=== PATIENT | male | born 1945 | race African-American/Black ===

== ENCOUNTER → 2018-03-22 | Outpatient (CLI) | payer MEDICARE ==
--- NOTE | 2018-03-22 11:11 | US ---
EXAMINATION TYPE: US liver DATE OF EXAM: 03/22/2018 COMPARISON: NONE CLINICAL HISTORY: R94.5 Elevated liver enzymes. Elevated LFT's EXAM MEASUREMENTS: Liver Length: 12.0 cm Gallbladder Wall: 0.2 cm CBD: 0.3 cm Right Kidney: 10.5 x 6.1 x 5.6 cm Limited scan/ Pt very gassy, most images visualized intercostally Pancreas: Obscured by bowel gas Liver: Limited visualization, visualized portions appeared wnl Gallbladder: wnl Evidence for sonographic Martinez's sign: No CBD: wnl Right Kidney: wnl IMPRESSION: 1. Technically difficult exam with limited visualization of the liver, however the visualized portion s have a homogeneous and unremarkable echogenicity. No focal hepatic lesion is seen. No cholelithiasi s or hydronephrosis. 2. Obscuration of the pancreas.
== END ==
LOC: RADUSWWP 10:03
PROVIDERS: ATTEND Internal Medicine
DX: K86.89 Other specified diseases of pancreas (principal)
CPT/HCPCS: 76705

== ENCOUNTER 2018-03-28 09:13 | Day surgery (SDC) | payer MEDICARE ==
[2018-03-24 13:07] VITALS: BMI 30.2
[~2018-03-28 09:13] MED LIST: LACTATED RINGERS 1,000 ML IV SCH
[2018-03-28] MEDS ORDERED: LIDOCAINE 1% 20 ML VIAL (10MG/ML) FOR IV START INTRADERMA ONE (10:18)
[2018-03-28 10:24] VITALS: RESP 18; TEMP 97.5
[2018-03-28] MEDS ORDERED: LIDOCAINE 1% INJ 10MG/ML (20 ML MDV) ONE (11:29)
[2018-03-28] MEDS ORDERED: PROPOFOL 10 MG/ML 20 ML VIAL IV ONE (11:29)
--- NOTE | 2018-03-28 11:59 | P.PCN ---
Date of Procedure: 03/28/18 Procedure(s) Performed: Procedure: Colonoscopy and polypectomy. Preoperative diagnosis: Screening for neoplasia. Postoperative diagnosis: 2 right colon polyps snared but no large polyps or cancer. Preparation: HalfLytely prep. Sedation: Was provided by anesthesia. Brief clinical history: The patient is a 72-year-old male who is scheduled for this evaluation for screening for neoplasia age being his risk factor. There is no family history of colon cancer. The patient has no abdominal complaints, bleeding or anemia. This would be his first colonoscopy. Procedure: With the patient on his left lateral decubitus position and after informed consent and adequate sedation, the perianal area was inspected and it did not show any fissures or fistulas. There were no masses felt on digital rectal examination. The Olympus CFQ 160L video colonoscope was then inserted in the rectum in the usual fashion and advanced to the cecum. There was a pedunculated polyp in the proximal right colon measuring around 1-1.5 cm which was snared and retrieved by suctioning it to the tip of the endoscope and withdrawing the endoscope and restarting the exam. There was another proximal diminutive polyp which was snared and retrieved by suction, but there were no large polyps or cancer. I retroflexed the endoscope in the rectum before the endoscope was withdrawn. The patient tolerated the procedure well. Plan: The patient was reassured. He will follow-up with you as planned and I recommended repeat exam in 5 years depending on his overall health at that time.
[2018-03-28 12:29] VITALS: BP 173/92; PULSE 80
== END 2018-03-28 12:43 | disposition home or self-care (01) ==
LOC: ORWHC2ENDO 09:13
DX: Z12.11 Encounter for screening for malignant neoplasm of colon (principal); D12.2 Benign neoplasm of ascending colon; I10 Essential (primary) hypertension; Z79.899 Other long term (current) drug therapy
CPT/HCPCS: 88305; 45385; J2001; J2704

== ENCOUNTER 2021-11-29 12:34 | Observation (INO) | payer MEDICARE ==
[2021-11-29] MEDS ORDERED: SODIUM CHLORIDE 0.9% 1,000 ML IV STA (12:36)
--- NOTE | 2021-11-29 12:49 | ED ---
Syncope HPI - General Stated Complaint: Syncope Time Seen by Provider: 11/29/21 12:34 Source: patient, EMS, RN notes reviewed Mode of arrival: EMS - History of Present Illness Initial Comments: 75-year-old male with a history of elevated liver enzymes and has no history of heart or lung disease who is a Vtap a brunch this morning he felt sweaty his eyes rolled back he became pale and diaphoretic. He states he does not believe he really totally passed out he denied any palpitations or chest pain shortness of breath upon arrival medics stated he was awake and alert he was a CPM diaphoretic but his color has returned he still slightly diaphoretic per medics. His only other history that of hypertension. No new medications reported no recent illnesses MD Complaint: almost passed out - Related Data Home Medications Medication Instructions Recorded Confirmed Docusate Sodium [Dok] 100 mg PO BID 11/29/21 11/29/21 Ergocalciferol (Vitamin D2) 1,250 mcg PO WE 11/29/21 11/29/21 [Drisdol (50,000 Iu)] Naproxen [Naprosyn] 500 mg PO BID 11/29/21 11/29/21 Tamsulosin HCl [Flomax] 0.4 mg PO DAILY 11/29/21 11/29/21 carvediloL [Coreg] 3.125 mg PO BID 11/29/21 11/29/21 lisinopriL [Zestril] 20 mg PO DAILY 11/29/21 11/29/21 Allergies Allergy/AdvReac Type Severity Reaction Status Date / Time No Known Allergies Allergy Verified 11/29/21 15:38 Review of Systems ROS Statement: Those systems with pertinent positive or pertinent negative responses have been documented in the HPI. ROS Other: All systems not noted in ROS Statement are negative. General Exam - General Exam Comments Initial Comments: This is a well-developed well-nourished awake alert oriented 4 male General appearance: alert, in no apparent distress Head exam: Present: atraumatic, normocephalic, normal inspection Eye exam: Present: normal appearance, PERRL, EOMI. Absent: scleral icterus, conjunctival injection, periorbital swelling ENT exam: Present: mucous membranes dry Neck exam: Present: normal inspection. Absent: tenderness, meningismus, lymphadenopathy Respiratory exam: Present: normal lung sounds bilaterally. Absent: respiratory distress, wheezes, rales, rhonchi, stridor Cardiovascular Exam: Present: regular rate, normal rhythm, normal heart sounds. Absent: systolic murmur, diastolic murmur, rubs, gallop, clicks GI/Abdominal exam: Present: soft, normal bowel sounds. Absent: distended, tenderness, guarding, rebound, rigid Extremities exam: Present: normal inspection, full ROM, normal capillary refill. Absent: tenderness, pedal edema, joint swelling, calf tenderness Back exam: Present: normal inspection Neurological exam: Present: alert, oriented X3, CN II-XII intact Psychiatric exam: Present: normal affect, normal mood Skin exam: Present: warm, intact, normal color, diaphoretic. Absent: rash Course Vital Signs 11/29/21 12:46 Temperature 98.2 F Pulse Rate 60 Respiratory 18 Rate Blood Pressure 162/81 O2 Sat by Pulse 98 Oximetry - Reevaluation(s) Reevaluation #1: 11/29/21 16:20 Reevaluation patient finds he is asymptomatic this time family members or present. Discussed the events patient apparently started having diaphoresis his eyes rolled back and he started following toward the right but was caught by family members and did not actually injure himself. He was laid on the floor and then quickly woke up and symptoms resolved EKG Findings - EKG Results: EKG: interpreted by PASTOR, sinus rhythm (Sinus rhythm of 60 ME interval 188 QRS duration 80 QT since QTC 391/391 nonspecific T-wave configuration some artifact present) Medical Decision Making - Medical Decision Making Patient is awake alert with no symptoms at this time I did discuss the findings with the patient family and with Dr. Haque. Patient be admitted for inpatient evaluation and treatment and monitoring. - Lab Data Result diagrams: 11/29/21 13:15 11/29/21 15:30 Lab Results 11/29/21 11/29/21 11/29/21 Range/Units 13:15 13:15 13:15 WBC 6.7 (3.8-10.6) k/uL RBC 3.47 L (4.30-5.90) m/uL Hgb 11.9 L (13.0-17.5) gm/dL Hct 38.8 L (39.0-53.0) % MCV 111.9 H (80.0-100.0) fL MCH 34.4 (25.0-35.0) pg MCHC 30.8 L (31.0-37.0) g/dL RDW 14.0 (11.5-15.5) % Plt Count 169 (150-450) k/uL MPV 8.1 Neutrophils % 51 % Lymphocytes % 37 % Monocytes % 6 % Eosinophils % 4 % Basophils % 0 % Neutrophils # 3.4 (1.3-7.7) k/uL Lymphocytes # 2.5 (1.0-4.8) k/uL Monocytes # 0.4 (0-1.0) k/uL Eosinophils # 0.3 (0-0.7) k/uL Basophils # 0.0 (0-0.2) k/uL Manual Slide Review Performed Hypochromasia Marked Macrocytosis Marked A APTT 18.9 L (22.0-30.0) sec Sodium Cancelled Potassium Cancelled Chloride Cancelled Carbon Dioxide Cancelled Anion Gap Cancelled BUN Cancelled Creatinine Cancelled Est GFR (CKD-EPI)AfAm Cancelled Est GFR (CKD-EPI)NonAf Cancelled Glucose Cancelled Calcium Cancelled Magnesium 1.8 (1.6-2.3) mg/dL Total Bilirubin Cancelled AST Cancelled ALT Cancelled Alkaline Phosphatase Cancelled Troponin I (0.000-0.034) ng/mL Total Protein Cancelled Albumin Cancelled Urine Color Urine Appearance (Clear) Urine pH (5.0-8.0) Ur Specific [place] (1.001-1.035) Urine Protein (Negative) Urine Glucose (UA) (Negative) Urine Ketones (Negative) Urine Blood (Negative) Urine Nitrite (Negative) Urine Bilirubin (Negative) Urine Urobilinogen (<2.0) mg/dL Ur Leukocyte Esterase (Negative) Urine RBC (0-5) /hpf Urine WBC (0-5) /hpf Ur Squamous Epith Cells (0-4) /hpf Hyaline Casts (0-2) /lpf Urine Mucus (None) /hpf 11/29/21 11/29/21 11/29/21 Range/Units 13:15 15:30 15:33 WBC (3.8-10.6) k/uL RBC (4.30-5.90) m/uL Hgb (13.0-17.5) gm/dL Hct (39.0-53.0) % MCV (80.0-100.0) fL MCH (25.0-35.0) pg MCHC (31.0-37.0) g/dL RDW (11.5-15.5) % Plt Count (150-450) k/uL MPV Neutrophils % % Lymphocytes % % Monocytes % % Eosinophils % % Basophils % % Neutrophils # (1.3-7.7) k/uL Lymphocytes # (1.0-4.8) k/uL Monocytes # (0-1.0) k/uL Eosinophils # (0-0.7) k/uL Basophils # (0-0.2) k/uL Manual Slide Review Hypochromasia Macrocytosis APTT (22.0-30.0) sec Sodium 139 Potassium 4.7 Chloride 108 H Carbon Dioxide 27 Anion Gap 4 BUN 11 Creatinine 1.05 Est GFR (CKD-EPI)AfAm 81 Est GFR (CKD-EPI)NonAf 70 Glucose 111 H Calcium 9.0 Magnesium (1.6-2.3) mg/dL Total Bilirubin 0.7 AST 62 H ALT 45 Alkaline Phosphatase 108 Troponin I <0.012 (0.000-0.034) ng/mL Total Protein 6.7 Albumin 3.4 L Urine Color Yellow Urine Appearance Clear (Clear) Urine pH 6.5 (5.0-8.0) Ur Specific [place] 1.018 (1.001-1.035) Urine Protein Trace H (Negative) Urine Glucose (UA) Negative (Negative) Urine Ketones Negative (Negative) Urine Blood Negative (Negative) Urine Nitrite Negative (Negative) Urine Bilirubin Negative (Negative) Urine Urobilinogen 4.0 (<2.0) mg/dL Ur Leukocyte Esterase Moderate H (Negative) Urine RBC 5 (0-5) /hpf Urine WBC 21 H (0-5) /hpf Ur Squamous Epith Cells <1 (0-4) /hpf Hyaline Casts 15 H (0-2) /lpf Urine Mucus Occasional H (None) /hpf - Radiology Data Radiology results: report reviewed (Imaging reviewed and as well as report no acute findings), image reviewed Disposition Clinical Impression: Syncope Disposition: ADMITTED IP TO THIS [facility] Condition: Fair Referrals: Carmina Haque MD [Primary Care Provider] - 1-2 days Decision Date: 11/29/21 Decision Time: 16:00
[2021-11-29 13:45] LABS: Basophils % (A) 0 %; Eosinophils # (A) 0.3 k/uL (0-0.7); Eosinophils % (A) 4 %; HCT 38.8 % (39.0-53.0); HGB 11.9 gm/dL (13.0-17.5); Hypochromasia Marked; Lymphocytes # (A) 2.5 k/uL (1.0-4.8); Lymphocytes % (A) 37 %; MCH 34.4 pg (25.0-35.0); MCHC 30.8 g/dL (31.0-37.0); MCV 111.9 fL (80.0-100.0); Macrocytosis Marked; Mean Platelet Volume 8.1; Monocytes # (A) 0.4 k/uL (0-1.0); Monocytes % (A) 6 %; Neutrophils # (A) 3.4 k/uL (1.3-7.7); Neutrophils % (A) 51 %; Platelet Count 169 k/uL (150-450); RBC 3.47 m/uL (4.30-5.90); WBC 6.7 k/uL (3.8-10.6)
--- NOTE | 2021-11-29 14:50 | XR ---
EXAMINATION TYPE: XR chest 2V DATE OF EXAM: 11/29/2021 COMPARISON: NONE HISTORY: Syncope TECHNIQUE: 2 views FINDINGS: Heart is normal. Lungs are clear of infiltrate. No heart failure. There are no hilar masses . Bony thorax is intact. IMPRESSION: No active cardiopulmonary disease. Normal heart.
[2021-11-29 15:53] LABS: Albumin 3.4 g/dL (3.5-5.0); Potassium 4.7 mmol/L (3.5-5.1); Total Bilirubin 0.7 mg/dL (0.2-1.3); Total Protein 6.7 g/dL (6.3-8.2)
[2021-11-29 16:09] LABS: Appearance,Urine Clear (Clear); Bilirubin,Urine Negative (Negative); Blood,Urine Negative (Negative); Color,Urine Yellow; Glucose,Urine (UA) Negative (Negative); Hyaline Casts,Urine 15 /lpf (0-2); Ketones,Urine Negative (Negative); Leukocyte Esterase,Urine Moderate (Negative); Mucus,Urine Occasional /hpf; Nitrite,Urine Negative (Negative); PH, Urine 6.5 (5.0-8.0); Protein,Urine Trace (Negative); RBC,Urine 5 /hpf (0-5); Specific Gravity,Urine 1.018 (1.001-1.035); Squamous Epithelial Cell,Urine <1 /hpf (0-4); WBC,Urine 21 /hpf (0-5)
[2021-11-29] MEDS ORDERED: ACETAMINOPHEN TAB 325 MG TAB PO PRN (16:23)
[2021-11-29] MEDS ORDERED: NALOXONE 0.4 MG/ML 1 ML VIAL IV PRN (16:23)
[2021-11-29 16:24] LABS: Prothrombin Time 10.9 sec (9.0-12.0)
[2021-11-29] MEDS ORDERED: SODIUM CHLORIDE 0.9% 1,000 ML IV SCH (16:30)
[2021-11-29] MEDS ORDERED: FAMOTIDINE 20 MG/2 ML VIAL IV STA (16:40)
--- NOTE | 2021-11-29 17:05 | CT ---
EXAMINATION TYPE: CT angio chest DATE OF EXAM: 11/29/2021 COMPARISON: None HISTORY: Syncope. CT DLP: 315.6 mGycm Automated exposure control for dose reduction was used. CONTRAST: Performed with IV Contrast, patient injected with 75ml mL of Isovue 370. There are Three-D postprocessed images. Mediastinum is normal. No adenopathy. There are no hilar masses. Heart size is normal. No pericardial effusion. Thoracic aorta is intact. No aneurysm. The lungs are clear of infiltrate. There is normal contrast opacification of the pulmonary arteries. There are no filling defects. There is small hiatal hernia. The thoracic spine is intact. No compression fracture. Sternum is intact. IMPRESSION: No evidence of pulmonary embolism. No suspicious pulmonary mass.
[2021-11-29] MEDS ORDERED: hydrALAZINE HCL 20 MG/ML 1 ML VIAL IVP STA (17:50)
[2021-11-29] MEDS: carvediloL 3.125 MG TAB PO SCH (20:06)
[2021-11-29] MEDS: NAPROXEN 250 MG TAB PO SCH (20:06)
[2021-11-29] MEDS: DOCUSATE 100 MG CAP PO SCH (20:06)
[2021-11-29] MEDS: MELATONIN 5 MG TABLET PO SCH (23:58)
[2021-11-30] MEDS: NAPROXEN 250 MG TAB PO SCH ×2 (08:47→20:37)
[2021-11-30] MEDS: carvediloL 3.125 MG TAB PO SCH ×2 (08:47→20:38)
[2021-11-30] MEDS: DOCUSATE 100 MG CAP PO SCH ×2 (08:48→20:38)
[2021-11-30] MEDS: TAMSULOSIN 0.4 MG CAP.ER.24H PO SCH (08:48)
[2021-11-30] MEDS ORDERED: lisinopriL 20 MG TAB PO SCH (09:00)
[2021-11-30] MEDS: ENOXAPARIN 40 MG/0.4 ML SYRINGE SQ SCH (12:52)
--- NOTE | 2021-11-30 15:21 | US ---
EXAMINATION TYPE: US carotid duplex BILAT DATE OF EXAM: 11/30/2021 COMPARISON: NONE CLINICAL HISTORY: syncope. syncope. Hypertension, hyperlipidemia. EXAM MEASUREMENTS: RIGHT: Peak Systolic Velocity (PSV) cm/sec ----- Right CCA: 100 ----- Right ICA: 175 ----- Right ECA: 136 ICA/CCA ratio: 1.2 RIGHT: End Diastole cm/sec ----- Right CCA: 15.2 ----- Right ICA: 28.5 ----- Right ECA: 9.7 LEFT: Peak Systolic Velocity (PSV) cm/sec ----- Left CCA: 94.4 ----- Left ICA: 192 ----- Left ECA: 214 ICA/CCA ratio: 2.0 LEFT: End Diastole cm/sec ----- Left CCA: 19.7 ----- Left ICA: 24.0 ----- Left ECA: 16.6 VERTEBRALS (direction of flow): Right Vertebral: Antegrade Left Vertebral: Antegrade Rhythm: Normal Turbulent flow seen within both ICA's. IMPRESSION: 1. Elevated velocities within the internal carotid arteries bilaterally compatible with moderate sten osis between 50 and 69%. Criteria for Assigning % of Stenosis / Diameter reduction (Estimation based on the indirect measurements of the internal carotid artery velocities (ICA PSV). 1. Normal (no stenosis)=ICA PSV < 125 cm/s: ratio < 2.0: ICA EDV<40 cm/s. 2. Less than 50% stenosis=ICA PSV < 125 cm/s: ratio < 2.0: ICA EDV<40 cm/s. 3. 50 to 69% stenosis=ICA PSV of 125 to 230 cm/s: ration 2.0 ? 4.0: ICA EDV 40-100 cm/s. 4. Greater than 70% stenosis to near occlusion= ICA PSV > 230 cm/s: ratio > 4.0: ICA EDV > 100 cm/s. 5. Near occlusion= ICA PSV velocities may be low or undetectable: variable ratio and ICA EDV. 6. Total occlusion=unable to detect flow.
--- NOTE | 2021-11-30 17:32 | CA ---
Transthoracic Echo Report Name: Prince Kin Age: 75 Gender: M : 1945 Exam Date: 11/30/2021 14:06 Exam Location: [place] [facility] Ht (in): 73 Wt (lb): 150 Ordering Physician: Carmina Haque MD Attending/Referring Phys: Long Distance Billing Operator Sarah Bautista RDCS Procedure CPT: Indications: Syncope Cardiac Hx: Technical Quality: Technically difficult study Contrast 1: Total Dose (mL): Contrast 2: Total Dose (mL): MEASUREMENTS (Male / Female) Normal Values 2D ECHO LV Diastolic Diameter PLAX 4.4 cm 4.2 - 5.9 / 3.9 - 5.3 cm LV Systolic Diameter PLAX 3.2 cm IVS Diastolic Thickness 1.1 cm 0.6 - 1.0 / 0.6 - 0.9 cm LVPW Diastolic Thickness 1.0 cm 0.6 - 1.0 / 0.6 - 0.9 cm LV Relative Wall Thickness 0.5 RV Internal Dim ED PLAX 3.9 cm LA Volume 51.0 cm??? 18 - 58 / 22 - 52 cm??? M-MODE Aortic Root Diameter MM 3.4 cm LA Systolic Diameter MM 4.2 cm LA Ao Ratio MM 1.2 AV Cusp Separation MM 1.4 cm DOPPLER LVOT Peak Velocity 107.1 cm/s LVOT Peak Gradient 4.6 mmHg MV Area PHT 4.1 cm??? Mitral E Point Velocity 91.8 cm/s Mitral A Point Velocity 129.8 cm/s Mitral E to A Ratio 0.7 MV Deceleration Time 185.4 ms MV E' Velocity 9.0 cm/s Mitral E to MV E' Ratio 10.2 TR Peak Velocity 256.2 cm/s TR Peak Gradient 26.3 mmHg Right Ventricular Systolic Press 31.3 mmHg FINDINGS Left Ventricle Normal Left ventricular size, wall thickness, systolic function with no obvious regional wall motion abnormalities. Normal Left ventricular diastolic filling pattern. Left ventricular ejection fraction is estimated at 50-55 %. Right Ventricle Mild right ventricular dilatation. Right ventricular systolic pressure within normal limits. Right Atrium Normal right atrial size. Left Atrium Normal left atrial size. No spontaneous echo contrast seen in the left atrium. Mitral Valve Structurally normal mitral valve. Mitral annular calcification. Mild mitral regurgitation. Aortic Valve No aortic valve stenosis or regurgitation. Tricuspid Valve Structurally normal tricuspid valve. Mild tricuspid regurgitation. Pulmonic Valve Structurally normal pulmonic valve. Trace pulmonic regurgitation. Pericardium No pericardial effusion. Aorta Normal size aortic root and proximal ascending aorta. CONCLUSIONS Normal LV size and systolic function Mild mitral regurgitation Previewed by: Dr. Toery Argueta MD (Electronically Signed) Final Date: 30 November 2021 17:31
--- NOTE | 2021-11-30 17:47 | P.HPIM ---
History of Present Illness H&P Date: 11/30/21 Chief Complaint: Mary Sanderson, is a 75-year-old male who presented to [facility] with a chief complaint of syncope, patient stated that he became diaphoretic and pale and was told that he lost consciousness, EMS were called and patient was brought into emergency room. He was evaluated in the emergency room vital examination on presentation reveale d a temperature of 98.2 pulse 60 respiration 18 blood pressure 162/81 pulse ox 98% on room air Laboratory data revealed a white blood count of 6.7 hemoglobin 11.9 platelet count 169 d-dimer was elevated at 3.49 sodium 139 potassium 4.7 chloride 108 CO2 27 BUN 11 creatinine 1.05 AST 62 a LT 45 troponin level less than 0.012 Testing in the emergency room revealed EKG done in the emergency room revealed sinus rhythm with nonspecific T-wave abnormalities, chest x-ray done in the emergency room revealed no active cardiopulmonary disease normal heart, CT angiogram of the chest done in the emergency room revealed no evidence of pulmonary embolism. Patient was admitted to medical floor for further evaluation and treatment Past medical history is significant for history of hypertension, history of elevated liver enzymes, history of vitamin D deficiency, history of benign prostatic hypertrophy, and history of osteoarthritis. Past Medical History Past Medical History: Hypertension History of Any Multi-Drug Resistant Organisms: None Reported Past Surgical History: No Surgical Hx Reported Past Anesthesia/Blood Transfusion Reactions: No Reported Reaction Past Psychological History: No Psychological Hx Reported Smoking Status: Never smoker Past Alcohol Use History: None Reported Past Drug Use History: None Reported Medications and Allergies Home Medications Medication Instructions Recorded Confirmed Type Docusate Sodium [Dok] 100 mg PO BID 11/29/21 11/29/21 History Ergocalciferol (Vitamin D2) 1,250 mcg PO WE 11/29/21 11/29/21 History [Drisdol (50,000 Iu)] Naproxen [Naprosyn] 500 mg PO BID 11/29/21 11/29/21 History Tamsulosin HCl [Flomax] 0.4 mg PO DAILY 11/29/21 11/29/21 History carvediloL [Coreg] 3.125 mg PO BID 11/29/21 11/29/21 History lisinopriL [Zestril] 20 mg PO DAILY 11/29/21 11/29/21 History Allergies Allergy/AdvReac Type Severity Reaction Status Date / Time No Known Allergies Allergy Verified 11/29/21 15:38 Physical Exam Vitals: Vital Signs Temp Pulse Pulse Resp BP BP BP 11/30/21 08:00 69 16 11/30/21 07:00 98.7 F 69 16 120/74 11/30/21 02:13 98.3 F 82 17 164/75 11/30/21 01:12 88 18 11/29/21 20:10 98.2 F 88 18 173/84 11/29/21 20:06 88 18 11/29/21 18:07 73 18 152/81 11/29/21 12:46 98.2 F 60 18 162/81 Pulse Ox 11/30/21 08:00 11/30/21 07:00 98 11/30/21 02:13 99 11/30/21 01:12 11/29/21 20:10 100 11/29/21 20:06 11/29/21 18:07 98 11/29/21 12:46 98 Intake and Output 11/29/21 11/30/21 11/30/21 22:59 06:59 14:59 Intake Total 118 Output Total 100 150 220 Balance -100 -150 -102 Intake: Oral 118 Output: Urine 100 150 220 Other: Voiding Method Urinal Urinal Urinal # Voids 2 1 Weight 68.039 kg In general patient is alert and oriented x 3 in no distress HEENT head normocephalic and atraumatic Neck is supple no JVD no goiter no lymphadenopathy no carotid bruit Chest examination is clear to auscultation no crackles no wheezing Cardiac exam reveals regular heart sounds S1 and S2 no gallops no murmurs Abdomen is soft nontender no organomegaly with normal bowel sounds Extremity exam reveals no edema no cyanosis or clubbing Neurological examination reveals no gross focal deficits Results CBC & Chem 7: 11/29/21 13:15 11/29/21 15:30 Labs: Abnormal Lab Results - Last 24 Hours (Table) 11/29/21 11/29/21 11/29/21 Range/Units 13:15 13:15 15:30 RBC 3.47 L (4.30-5.90) m/uL Hgb 11.9 L (13.0-17.5) gm/dL Hct 38.8 L (39.0-53.0) % MCV 111.9 H (80.0-100.0) fL MCHC 30.8 L (31.0-37.0) g/dL Macrocytosis Marked A APTT 18.9 L (22.0-30.0) sec D-Dimer 3.49 H (<0.60) mg/L FEU Chloride (98-107) mmol/L Glucose (74-99) mg/dL AST (17-59) U/L Albumin (3.5-5.0) g/dL Urine Protein (Negative) Ur Leukocyte Esterase (Negative) Urine WBC (0-5) /hpf Hyaline Casts (0-2) /lpf Urine Mucus (None) /hpf 11/29/21 11/29/21 Range/Units 15:30 15:33 RBC (4.30-5.90) m/uL Hgb (13.0-17.5) gm/dL Hct (39.0-53.0) % MCV (80.0-100.0) fL MCHC (31.0-37.0) g/dL Macrocytosis APTT (22.0-30.0) sec D-Dimer (<0.60) mg/L FEU Chloride 108 H (98-107) mmol/L Glucose 111 H (74-99) mg/dL AST 62 H (17-59) U/L Albumin 3.4 L (3.5-5.0) g/dL Urine Protein Trace H (Negative) Ur Leukocyte Esterase Moderate H (Negative) Urine WBC 21 H (0-5) /hpf Hyaline Casts 15 H (0-2) /lpf Urine Mucus Occasional H (None) /hpf Microbiology - Last 24 Hours (Table) 11/29/21 15:33 Urine Culture - Preliminary Urine,Voided Thrombosis Risk Factor Assmnt - Choose All That Apply Each Factor Represents 1 point: Serious lung disease incl. pneumonia (< 1month) Each Risk Factor Represents 2 Points: Age 61-74 years Other congenital or acquired thrombophilia - If yes, enter type in comment: No Thrombosis Risk Factor Assessment Total Risk Factor Score: 3 Thrombosis Risk Factor Assessment Level: Moderate Risk Assessment and Plan Plan: Syncopal episode Elevated d-dimer, CT angiogram of the chest was negative for pulmonary embolism Underlying history of hypertension Underlying history of benign prostatic hypertrophy Underlying history of vitamin D deficiency Underlying history of osteoarthritis At this time patient is admitted to telemetry floor Echocardiogram and carotid Doppler were ordered Cardiology consultation requested Urine culture ordered He was started on IV Rocephin for urinary tract infection Home medications reviewed and reordered For DVT prophylaxis subcu Lovenox Will follow closely
[2021-11-30] MEDS: MELATONIN 5 MG TABLET PO SCH (20:37)
[2021-12-01 07:44] VITALS: RESP 14
[2021-12-01] MEDS ORDERED: lisinopriL 10 MG TAB PO SCH (09:00)
[2021-12-01] MEDS: DOCUSATE 100 MG CAP PO SCH (09:20)
[2021-12-01] MEDS: ENOXAPARIN 40 MG/0.4 ML SYRINGE SQ SCH (09:20)
[2021-12-01] MEDS: NAPROXEN 250 MG TAB PO SCH (09:20)
[2021-12-01] MEDS: TAMSULOSIN 0.4 MG CAP.ER.24H PO SCH (09:20)
[2021-12-01] MEDS ORDERED: SODIUM CHLORIDE 0.9% 1,000 ML IV SCH ×2 (09:30)
[2021-12-01 09:41] LABS: HCT 29.7 % (39.6-50.0); HGB 9.4 g/dL (13.0-17.0); MCH 33.3 pg (27.0-32.0); MCHC 31.6 g/dL (32.0-37.0); MCV 105.3 fL (80.0-97.0); NRBC Per 100 WBC 0 /100 WBCS (0.0-0.0); Platelet Count 148 X 10*3/uL (140-440); RBC 2.82 X 10*6/uL (4.40-5.60); RDW 14.9 % (11.5-14.5); WBC 6.58 X 10*3/uL (4.50-10.00)
[2021-12-01 09:54] LABS: ALT 34 U/L (10-49); AST 40 U/L (14-35); African American GFR (CKD) 105.4 (60.0-200.0); Albumin 2.9 g/dL (3.8-4.9); Albumin/Globulin Ratio 1.25 (1.60-3.17); Alkaline Phosphatase 66 U/L (41-126); BUN/Creat Ratio 17.48 Ratio (12.00-20.00); Blood Urea Nitrogen 12.9 mg/dL (9.0-27.0); Calcium 8.7 mg/dL (8.7-10.3); Carbon Dioxide 25.1 mmol/L (20.0-27.5); Chloride 109 mmol/L (96-109); Globulin 2.3 g/dL (1.6-3.3); Glucose 90 mg/dL (70-110); Potassium 3.9 mmol/L (3.5-5.5); Sodium 143 mmol/L (135-145); Total Protein 5.2 g/dL (6.2-8.2)
--- NOTE | 2021-12-01 10:08 | P.CRDCN ---
History of Present Illness History of present illness: HISTORY OF PRESENTING ILLNESS This is a pleasant 75-year-old male past medical history significant for hypertension. 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 We have been asked to see in consultation for syncope. Patient presents emergency department after a syncopal episode. Patient was having brunch at the [employer] with his family, patient states that he felt diaphoretic. Per EMS report, patient wasleaning, eyes rolling back of his head, and was assisted out of his chair to the floor and apparently experienced a syncopal episode. He was diaphoretic and cool. Per patient she does not remember actually passing out, he does remember being lowered to the floor. He denies any chest pain, shortness of breath, palpitations, lightheadedness or dizziness. He doesn't remember a warning sign prior to this happening. He states his first symptom was diaphoresis. When EMS arrived, his vital signs are stable, his EKG showed sinus rhythm, he was given IV fluids, neurological assessment was intact per EMS. Patient states that this has never happened before. He denies history of CAD, HI, Stroke, Diabetes, Arrhythmia or dyslipidemia. He denies tobacco use. DIAGNOSTICS EKG reveals sinus rhythm, heart rate 60, T wave inversion in lead III, nonspecific T-wave abnormalities. No acute ischemia noted.. Telemetry tracings indicate sinus rhythm with a rate in the 60s-70s, no ar rhythmia noted. Echocardiogram revealed an EF of 5055%, mild mitral regurgitation Chest CT revealed no pulmonary embolism Carotid ultrasound reveals moderate stenosis measuring 5069 percent and in ternal carotid arteries bilaterally Laboratory reviewed, troponin negative 3, WBC 6.5, hemoglobin 9.4, platelets 148, d-dimer 3.4, sodium 143, potassium 3.9, BUN 12, serum creatinine 0.7, albumin 2.9 Current home cardiac medications include lisinopril 20 mg daily, carvedilol 3.125 mg twice a day REVIEW OF SYSTEMS At the time of my exam: CONSTITUTIONAL: Denies fever or chills. CARDIOVASCULAR: Denies chest pain, shortness of breath, orthopnea, PND or palpitations. RESPIRATORY: Denies cough. GASTROINTESTINAL: Denies abdominal pain, diarrhea, constipation, nausea or vomiting. MUSCULOSKELETAL: Denies myalgias. NEUROLOGIC: Denies numbness, tingling, headacbe or weakness. ENDOCRINE: Denies fatigue, weight change, polydipsia or polyurina. GENITOURINARY: Denies burning, hematuria or urgency with micturation. HEMATOLOGIC: Denies history of anemia or bleeding. PHYSICAL EXAMINATION Blood pressure 132/66, heart rate 58, afebrile, saturations 99% on room air CONSTITUTIONAL: No apparent distress. HEENT: Head is normocephalic. Pupils are equal, round. Sclerae anicteric. Mucous membranes of the mouth are moist. No JVD. No carotid bruit. CHEST EXAMINATION: Lungs are clear to auscultation. No chest wall tenderness is noted on palpation or with deep breathing. HEART EXAMINATION: Regular rate and rhythm. S1, S2 heard. No murmurs, gallops or rub. ABDOMEN: Soft, nontender. Positive bowel sounds. EXTREMITIES: 2+ peripheral pulses, no lower extremity edema and no calf tenderness. NEUROLOGIC EXAMINATION: Patient is awake, alert and oriented x3. ASSESSMENT Syncopal episode History of hypertension Anemia PLAN Recommend stopping Coreg Increase Lisinopril 30mg daily Secondary to high suspicion for possible cardiac etiology, recommend Loop recorder placement I have discussed the risks, benefits and alternative therapies for the above- mentioned procedure and for both sedation/analgesia as well as necessary blood product administration, if indicated, as they pertain to this patient. The patient has indicated understanding and acceptance of the risks and procedures discussed. Questions have been answered appropriately and he is agreeable to move forward with the above-stated procedure. Plan for Loop recorder today with Dr. Argueta Follow up outpatient with Dr. Argueta Nurse practitioner note has been reviewed by physician. Signing provider agrees with the documented findings, assessment, and plan of care. Past Medical History Past Medical History: Hypertension History of Any Multi-Drug Resistant Organisms: None Reported Past Surgical History: No Surgical Hx Reported Past Anesthesia/Blood Transfusion Reactions: No Reported Reaction Past Psychological History: No Psychological Hx Reported Smoking Status: Never smoker Past Alcohol Use History: None Reported Past Drug Use History: None Reported Medications and Allergies Home Medications Medication Instructions Recorded Confirmed Type Docusate Sodium [Dok] 100 mg PO BID 11/29/21 11/29/21 History Ergocalciferol (Vitamin D2) 1,250 mcg PO WE 11/29/21 11/29/21 History [Drisdol (50,000 Iu)] Naproxen [Naprosyn] 500 mg PO BID 11/29/21 11/29/21 History Tamsulosin HCl [Flomax] 0.4 mg PO DAILY 11/29/21 11/29/21 History lisinopriL [Zestril] 20 mg PO DAILY 11/29/21 11/29/21 History Rosuvastatin [Crestor] 20 mg PO DAILY 90 Days #90 tablet 12/01/21 Rx Allergies Allergy/AdvReac Type Severity Reaction Status Date / Time No Known Allergies Allergy Verified 11/29/21 15:38 Physical Exam Vitals: Vital Signs Temp Pulse Resp BP BP Pulse Ox 12/01/21 07:00 98.1 F 58 L 14 132/66 99 12/01/21 01:16 97.8 F 67 17 114/61 99 11/30/21 19:01 97.7 F 63 16 129/69 100 11/30/21 15:00 98.2 F 68 16 144/80 98 11/30/21 14:00 68 16 Intake and Output 11/30/21 12/01/21 12/01/21 22:59 06:59 14:59 Intake Total 240 Output Total 120 Balance 120 Intake: Oral 240 Output: Urine 120 Other: # Voids 1 1 Results 12/01/21 06:13 11/29/21 15:30 Current Medications Generic Name Dose Route Start Last Admin Trade Name Freq PRN Reason Stop Dose Admin Acetaminophen 650 mg 11/29/21 16:23 Acetaminophen Tab 325 Mg Tab PO Q6HR PRN Mild Pain or Fever > 100.5 Carvedilol 3.125 mg 11/29/21 21:00 11/30/21 20:38 Carvedilol 3.125 Mg Tab PO 3.125 mg BID HUBERT Administration Docusate Sodium 100 mg 11/29/21 21:00 11/30/21 20:38 Docusate 100 Mg Cap PO 100 mg BID HUBERT Administration Enoxaparin Sodium 40 mg 11/30/21 11:45 11/30/21 12:52 Enoxaparin 40 Mg/0.4 Ml Syringe SQ 40 mg DAILY HUBERT Administration Ergocalciferol 1,250 mcg 12/02/21 16:26 Ergocalciferol 1,250 Mcg (50,000 Iu) Capsule PO WE HUBERT Ceftriaxone Sodium 1 gm/ 50 mls @ 100 mls/hr 11/30/21 12:00 11/30/21 12:52 Sodium Chloride IVPB 100 mls/hr Q24HR HUBERT Administration Protocol Lisinopril 20 mg 11/30/21 09:00 11/30/21 08:47 Lisinopril 20 Mg Tab PO 20 mg DAILY HUBERT Administration Melatonin 10 mg 11/29/21 23:45 11/30/21 20:37 Melatonin 5 Mg Tablet PO 10 mg HS HUBERT Administration Naloxone HCl 0.2 mg 11/29/21 16:23 Naloxone 0.4 Mg/Ml 1 Ml Vial IV Q2M PRN Opioid Reversal Naproxen 500 mg 11/29/21 21:00 11/30/21 20:37 Naproxen 250 Mg Tab PO 500 mg BID HUBERT Administration Tamsulosin HCl 0.4 mg 11/30/21 09:00 11/30/21 08:48 Tamsulosin 0.4 Mg Cap.Er.24h PO 0.4 mg DAILY HUBERT Administration Intake and Output 11/30/21 12/01/21 12/01/21 22:59 06:59 14:59 Intake Total 240 Output Total 120 Balance 120 Intake: Oral 240 Output: Urine 120 Other: # Voids 1 1 11/29/21 13:15 11/29/21 15:30
[2021-12-01] MEDS ORDERED: MIDAZOLAM 2 MG/2 ML VIAL IV ONE (10:41)
[2021-12-01] MEDS ORDERED: LIDOCAINE 1% PF 10 MG/ML (5 ML AMP) SQ ONE (10:42)
[2021-12-01] MEDS ORDERED: IV FLUID CONTINUATION 500 ML IV ONE (10:43)
--- NOTE | 2021-12-01 10:55 | P.EPPROC ---
- EP Procedure Note Electrophysiology Procedure Note: Loop monitor implant Primary physicians: Dr Haque Coding Validator: Dr. Argueta Indication: Syncope while sitting, preceded by sweating Patient was brought to the EP lab in a fasting state. Written informed consent was obtained prior to the procedure. The left pectoral area was prepped and dr gipsoned per protocol. Intravenous antibiotic was administered preoperatively. A subcutaneous Loop monitor was implanted successfully and the wound was closed per protocol. The device was programmed to detect significant sarina- arrhythmic and tachy-arrhythmic events, per protocol. Device and programming details: Patient underwent EP procedure under conscious sedation/moderate sedation, monitoring of the level of consciousness and physiologic parameters including but not limited to vital signs and oxygenation. Patient tolerated the procedure well without any acute complications. Start time: 1042 Stop time: 1052
--- NOTE | 2021-12-01 11:02 | P.PN ---
Progress Note - Text 75-year-old male patient with a history of hypertension He is sitting at the lunch table when he felt sweaty and then proceeded to almost pass out He is never experienced such an event When EMS arrived his blood pressure was high Twelve-lead EKG shows sinus mechanism 60 beats a minute 2-D echo is normal The plan is to implant a loop monitor to look for any sudden bradycardia episodes Stop carvedilol Increase lisinopril and maximize for antihypertensive management Rosuvastatin 20 mg by mouth daily after lipid panel Follow Dr. Argueta/Katarina Rae
[2021-12-01 11:20] VITALS: TEMP 98.4
[2021-12-01 11:23] LABS: Basophils # (A) 0.01 X 10*3/uL (0.00-0.10); Basophils % (A) 0.2 %; Eosinophils # (A) 0.27 X 10*3/uL (0.04-0.35); Eosinophils % (A) 4.1 %; Immature Grans, Automated 0.2 %; Lymphocytes # (A) 3.18 X 10*3/uL (0.90-5.00); Lymphocytes % (A) 48.3 %; Macrocytosis (M) 2+; Monocytes # (A) 0.71 X 10*3/uL (0.20-1.00); Monocytes % (A) 10.8 %; Neutrophils % (A) 36.4 %
[2021-12-01 15:15] VITALS: BP 150/80; PULSE 62
[2021-12-01 17:35] LABS: Chol/HDL Ratio 2.78 Ratio; LDL Cholesterol,Calculated 68.2 mg/dL (0.0-131.0); VLDL Calculation 12.48 mg/dL (5.00-40.00)
[2021-12-02] MEDS ORDERED: ERGOCALCIFEROL 1,250 MCG (50,000 IU) CAPSULE PO SCH (16:26)
== END 2021-12-01 15:56 | disposition home or self-care (01) ==
LOC: EC 12:34 → 6NMEDSUR 16:30
PROVIDERS: ADMIT Internal Medicine; ATTEND Internal Medicine
DX: R55 Syncope and collapse (principal); R79.89 Other specified abnormal findings of blood chemistry; R61 Generalized hyperhidrosis; N39.0 Urinary tract infection, site not specified; I65.23 Occlusion and stenosis of bilateral carotid arteries; I10 Essential (primary) hypertension; E55.9 Vitamin D deficiency, unspecified; I34.0 Nonrheumatic mitral (valve) insufficiency; M19.90 Unspecified osteoarthritis, unspecified site; E78.5 Hyperlipidemia, unspecified; N40.0 Benign prostatic hyperplasia without lower urinary tract symptoms; R74.8 Abnormal levels of other serum enzymes; D64.9 Anemia, unspecified; Z79.1 Long term (current) use of non-steroidal anti-inflammatories (NSAID); Z79.899 Other long term (current) drug therapy
CPT/HCPCS: 96365; 96372 ×2; 96361; 96375; 99285; 36415; 93005; 93306; 97162; 97166; 33285; 85379; 80061; 80053 ×2; 83735; 84484; 85025 ×2; 85610; 85730; 81001; 87086; 71046; 93880; 71275; G0378 ×3; C1764; J2250; J0360; J0690; J2001; J1650 ×2; J0696 ×2; Q9967

== ENCOUNTER 2022-03-23 13:39 | Observation (INO) | payer MEDICARE ==
[2022-03-23] MEDS ORDERED: SODIUM CHLORIDE 0.9% 1,000 ML IV STA (14:02)
--- NOTE | 2022-03-23 14:25 | ED ---
General Adult HPI - General Chief complaint: Syncope Stated complaint: syncopal episode Time Seen by Provider: 03/23/22 13:45 Source: patient, EMS, RN notes reviewed, old records reviewed Mode of arrival: EMS Limitations: no limitations - History of Present Illness Initial comments: This is a 76-year-old male who presents emergency Department stating he was just sitting and had no symptoms in the next thing he knows he woke up on the ground. He states his niece was at her and she states she just went unconscious and they lowered him to the floor and he was out for a few seconds and then he woke up and he continues to be asymptomatic. Patient denies any headache patient denies numbness weakness. Patient denies chest pain palpitations difficulty breathing shortness of breath per patient denies any recent fever chills or cough. Patient denies any diarrhea or vomiting. Patient states this happened once to him before back on Father's Day and they were unable to find anything wrong. - Related Data Home Medications Medication Instructions Recorded Confirmed Docusate Sodium [Dok] 100 mg PO BID 11/29/21 03/23/22 Ergocalciferol (Vitamin D2) 1,250 mcg PO WE 11/29/21 03/23/22 [Drisdol (50,000 Iu)] Tamsulosin HCl [Flomax] 0.4 mg PO DAILY 11/29/21 03/23/22 Levothyroxine Sodium [Synthroid] 25 mcg PO DAILY 03/23/22 03/23/22 Naproxen [Naprosyn] 500 mg PO BID 03/23/22 03/23/22 carvediloL [Coreg] 3.125 mg PO BID 03/23/22 03/23/22 lisinopriL 30 mg PO DAILY 03/23/22 03/23/22 Previous Rx's Medication Instructions Recorded Acetaminophen Tab [Tylenol] 650 mg PO Q6HR PRN tab 12/01/21 Rosuvastatin [Crestor] 20 mg PO DAILY 90 Days #90 tablet 12/01/21 Allergies Allergy/AdvReac Type Severity Reaction Status Date / Time No Known Allergies Allergy Verified 03/23/22 15:09 Review of Systems ROS Statement: Those systems with pertinent positive or pertinent negative responses have been documented in the HPI. ROS Other: All systems not noted in ROS Statement are negative. Past Medical History Past Medical History: Hypertension History of Any Multi-Drug Resistant Organisms: None Reported Past Surgical History: No Surgical Hx Reported Past Anesthesia/Blood Transfusion Reactions: No Reported Reaction Past Psychological History: No Psychological Hx Reported Smoking Status: Never smoker Past Alcohol Use History: None Reported Past Drug Use History: None Reported General Exam - General Exam Comments Initial Comments: GENERAL: Patient is well-developed and well-nourished. Patient is nontoxic and well- hydrated and is in no acute distress. ENT: Neck is soft and supple. No significant lymphadenopathy is noted. Oropharynx is clear. Moist mucous membranes. Neck has full range of motion without eliciting any pain. EYES: The sclera were anicteric and conjunctiva were pink and moist. Extraocular movements were intact and pupils were equal round and reactive to light. Eyelids were unremarkable. PULMONARY: Unlabored respirations. Good breath sounds bilaterally. No audible rales rhonchi or wheezing was noted. CARDIOVASCULAR: There is a regular rate and rhythm without any murmurs gallops or rubs. ABDOMEN: Soft and nontender with normal bowel sounds. SKIN: Skin is clear with no lesions or rashes and otherwise unremarkable. NEUROLOGIC: Patient is alert and oriented x3. Cranial nerves II through XII are grossly intact. Motor and sensory are also intact. Normal speech, volume and content. Symmetrical smile. MUSCULOSKELETAL: Normal extremities with adequate strength and full range of motion. No lower extremity swelling or edema. No calf tenderness. LYMPHATICS: No significant lymphadenopathy is noted PSYCHIATRIC: Normal psychiatric evaluation. Limitations: no limitations Course Vital Signs 03/23/22 03/23/22 03/23/22 13:44 15:11 15:12 Temperature 97.2 F L Pulse Rate 55 L 71 Respiratory 18 18 18 Rate Blood Pressure 104/92 Blood Pressure 138/90 [Right Arm Sitting] Blood Pressure 125/80 [Right Arm Standing] Blood Pressure 151/77 [Right Arm Supine] O2 Sat by Pulse 99 98 Oximetry 03/23/22 16:50 Temperature Pulse Rate 78 Respiratory 16 Rate Blood Pressure 138/75 Blood Pressure [Right Arm Sitting] Blood Pressure [Right Arm Standing] Blood Pressure [Right Arm Supine] O2 Sat by Pulse 99 Oximetry Medical Decision Making - Medical Decision Making EKG shows sinus bradycardia 50 bpm NC interval is 206 QRS is 90 QT interval 426 QTC is 41 per patient's EKG shows no ST segment elevation or T-wave inversions in leads 3 and aVF. Chest x-ray showed no acute abnormality. I went back into the room to reevaluate the patient and he remained asymptomatic. I spoke with Dr. Haque he wanted the patient admitted I admitted the patient I consult cardiology - Lab Data Result diagrams: 03/23/22 14:08 03/23/22 15:58 Lab Results 03/23/22 03/23/22 03/23/22 Range/Units 14:08 15:58 15:58 WBC 5.6 (3.8-10.6) k/uL RBC 3.89 L (4.30-5.90) m/uL Hgb 12.6 L (13.0-17.5) gm/dL Hct 40.8 (39.0-53.0) % MCV 105.0 H (80.0-100.0) fL MCH 32.4 (25.0-35.0) pg MCHC 30.9 L (31.0-37.0) g/dL RDW 13.4 (11.5-15.5) % Plt Count 164 (150-450) k/uL MPV 9.2 Neutrophils % 42 % Lymphocytes % 44 % Monocytes % 6 % Eosinophils % 4 % Basophils % 0 % Neutrophils # 2.3 (1.3-7.7) k/uL Lymphocytes # 2.5 (1.0-4.8) k/uL Monocytes # 0.4 (0-1.0) k/uL Eosinophils # 0.2 (0-0.7) k/uL Basophils # 0.0 (0-0.2) k/uL Hypochromasia Slight Macrocytosis Slight PT (9.0-12.0) sec INR (<1.2) APTT (22.0-30.0) sec Sodium 144 (137-145) mmol/L Potassium 4.1 (3.5-5.1) mmol/L Chloride 110 H (98-107) mmol/L Carbon Dioxide 24 (22-30) mmol/L Anion Gap 10 mmol/L BUN 16 (9-20) mg/dL Creatinine 0.95 (0.66-1.25) mg/dL Est GFR (CKD-EPI)AfAm >90 (>60 ml/min/1.73 sqM) Est GFR (CKD-EPI)NonAf 78 (>60 ml/min/1.73 sqM) Glucose 89 (74-99) mg/dL Calcium 9.0 (8.4-10.2) mg/dL Magnesium 1.9 (1.6-2.3) mg/dL Total Bilirubin 1.1 (0.2-1.3) mg/dL AST 57 (17-59) U/L ALT 45 (4-49) U/L Alkaline Phosphatase 84 (38-126) U/L Troponin I <0.012 (0.000-0.034) ng/mL Total Protein 6.6 (6.3-8.2) g/dL Albumin 3.4 L (3.5-5.0) g/dL 03/23/22 Range/Units 15:58 WBC (3.8-10.6) k/uL RBC (4.30-5.90) m/uL Hgb (13.0-17.5) gm/dL Hct (39.0-53.0) % MCV (80.0-100.0) fL MCH (25.0-35.0) pg MCHC (31.0-37.0) g/dL RDW (11.5-15.5) % Plt Count (150-450) k/uL MPV Neutrophils % % Lymphocytes % % Monocytes % % Eosinophils % % Basophils % % Neutrophils # (1.3-7.7) k/uL Lymphocytes # (1.0-4.8) k/uL Monocytes # (0-1.0) k/uL Eosinophils # (0-0.7) k/uL Basophils # (0-0.2) k/uL Hypochromasia Macrocytosis PT 10.5 (9.0-12.0) sec INR 1.0 (<1.2) APTT 22.6 (22.0-30.0) sec Sodium (137-145) mmol/L Potassium (3.5-5.1) mmol/L Chloride (98-107) mmol/L Carbon Dioxide (22-30) mmol/L Anion Gap mmol/L BUN (9-20) mg/dL Creatinine (0.66-1.25) mg/dL Est GFR (CKD-EPI)AfAm (>60 ml/min/1.73 sqM) Est GFR (CKD-EPI)NonAf (>60 ml/min/1.73 sqM) Glucose (74-99) mg/dL Calcium (8.4-10.2) mg/dL Magnesium (1.6-2.3) mg/dL Total Bilirubin (0.2-1.3) mg/dL AST (17-59) U/L ALT (4-49) U/L Alkaline Phosphatase (38-126) U/L Troponin I (0.000-0.034) ng/mL Total Protein (6.3-8.2) g/dL Albumin (3.5-5.0) g/dL Disposition Clinical Impression: Syncope Disposition: ADMITTED IP TO THIS HOSP Referrals: Carmina Haque MD [Primary Care Provider] - 1-2 days Time of Disposition: 17:25
[2022-03-23 14:43] LABS: Basophils % (A) 0 %; Eosinophils # (A) 0.2 k/uL (0-0.7); Eosinophils % (A) 4 %; HCT 40.8 % (39.0-53.0); HGB 12.6 gm/dL (13.0-17.5); Hypochromasia Slight; Lymphocytes # (A) 2.5 k/uL (1.0-4.8); Lymphocytes % (A) 44 %; MCH 32.4 pg (25.0-35.0); MCHC 30.9 g/dL (31.0-37.0); Macrocytosis Slight; Mean Platelet Volume 9.2; Monocytes # (A) 0.4 k/uL (0-1.0); Monocytes % (A) 6 %; Neutrophils # (A) 2.3 k/uL (1.3-7.7); Neutrophils % (A) 42 %; Platelet Count 164 k/uL (150-450); RBC 3.89 m/uL (4.30-5.90); RDW 13.4 % (11.5-15.5); WBC 5.6 k/uL (3.8-10.6)
--- NOTE | 2022-03-23 15:26 | XR ---
EXAMINATION TYPE: XR chest 2V DATE OF EXAM: 03/23/2022 COMPARISON: 11/29/2021 HISTORY: 76-year-old male with chest pain and syncope today TECHNIQUE: AP and lateral views FINDINGS: Heart upper limits of normal in size. Loop recorder device projects over the left side of the heart. Aorta and pulmonary vasculature within normal limits. No consolidation or pleural effusion. IMPRESSION: No acute cardiopulmonary process.
[2022-03-23 16:10] LABS: ALT 45 U/L (4-49); AST 57 U/L (17-59); African American GFR (CKD) >90 (>60 ml/min/1.73 sqM); Albumin 3.4 g/dL (3.5-5.0); Alkaline Phosphatase 84 U/L (38-126); Anion Gap 10 mmol/L; Blood Urea Nitrogen 16 mg/dL (9-20); Carbon Dioxide 24 mmol/L (22-30); Chloride 110 mmol/L (98-107); Glucose 89 mg/dL (74-99); Magnesium 1.9 mg/dL (1.6-2.3); Non-African American GFR(CKD) 78 (>60 ml/min/1.73 sqM); Potassium 4.1 mmol/L (3.5-5.1); Sodium 144 mmol/L (137-145); Total Bilirubin 1.1 mg/dL (0.2-1.3); Total Protein 6.6 g/dL (6.3-8.2)
[2022-03-23 16:12] LABS: Partial Thromboplastin Time 22.6 sec (22.0-30.0); Prothrombin Time 10.5 sec (9.0-12.0)
[2022-03-23] MEDS ORDERED: NITROGLYCERIN SL TABS 0.4 MG TAB SUBLINGUAL PRN (17:25)
--- NOTE | 2022-03-24 07:03 | P.CRDCN ---
History of Present Illness History of present illness: HISTORY OF PRESENTING ILLNESS Patient is pleasant 76 -year-old male with history of hypertension, syncope status post loop recorder implant who presents secondary syncope. He did have similar episode in November where he had sudden onset of diaphoresis and then a syncopal episode. Given symptoms a loop recorder was placed. He has done well since and has had no other episodes however yesterday was sitting in a chair and suddenly started feeling ready and then fell backwards however family member was there to catch him. Shortly after he returned to normal. Today he feels normal. Blood pressure mildly low at 109/90 when he presented to the hospital. Previous echo November 2021 showed EF 50-55% with mild mitral regurgitation. EKG shows sinus bradycardia with T-wave inversions in lead 3 and aVF which is worsened from EKG in November. He denies any chest pain or pressure. He has not be lieve he has had a stress test in the office. Troponins noted to be normal 3. REVIEW OF SYSTEMS At the time of my exam: CONSTITUTIONAL: Denies fever or chills. CARDIOVASCULAR: Denies chest pain, shortness of breath, orthopnea, PND or palpitations. RESPIRATORY: Denies cough. GASTROINTESTINAL: Denies abdominal pain, diarrhea, constipation, nausea or vomiting. MUSCULOSKELETAL: Denies myalgias. NEUROLOGIC: Denies numbness, tingling or weakness. ENDOCRINE: Denies fatigue, weight change, polydipsia or polyurina. GENITOURINARY: Denies burning, hematuria or urgency with micturation. HEMATOLOGIC: Denies history of anemia or bleeding. PHYSICAL EXAMINATION Vital signs reviewed. CONSTITUTIONAL: No apparent distress. HEENT: Head is normocephalic. Pupils are equal, round. Sclerae anicteric. Mucous membranes of the mouth are moist. No JVD. No carotid bruit. CHEST EXAMINATION: Lungs are clear to auscultation. No chest wall tenderness is noted on palpation or with deep breathing. HEART EXAMINATION: Regular rate and rhythm. S1, S2 heard. No murmurs, gallops or rub. ABDOMEN: Soft, nontender. Positive bowel sounds. EXTREMITIES: 2+ peripheral pulses, no lower extremity edema and no calf tende rness. NEUROLOGIC EXAMINATION: Patient is awake, alert and oriented x3. ASSESSMENT 1. Syncope 2 with proceeding diaphoresis 2. Abnormal EKG T-wave inversions, rule out ischemia 3. Hypertension, borderline low when presented to emergency department 109 over 90s 4. Sinus bradycardia in the 50s 5. Status post loop recorder implant PLAN Patient with second episode of syncope with prior episode in November. He has done well since that time. Syncope preceded by diaphoresis. Check loop recorder to rule out any tachycardia or bradycardia. Additionally no T-wave inversions on EKG and not have any significant angina however rule out obstructive CAD and we will check a Cardiolite stress test. If unrevealing patient may be discharged home however would decrease lisinopril from 30-10 mg given borderline hypotension on presentation. Past Medical History Past Medical History: Hypertension, Syncope History of Any Multi-Drug Resistant Organisms: None Reported Past Surgical History: No Surgical Hx Reported Past Anesthesia/Blood Transfusion Reactions: No Reported Reaction Past Psychological History: No Psychological Hx Reported Smoking Status: Never smoker Past Alcohol Use History: None Reported Past Drug Use History: None Reported - Past Family History Father Family Medical History: No Reported History Additional Family Medical History / Comment(s): at age 46 Mother Additional Family Medical History / Comment(s): breast cancer. age 95 Medications and Allergies Home Medications Medication Instructions Recorded Confirmed Type Docusate Sodium [Dok] 100 mg PO BID 11/29/21 03/23/22 History Ergocalciferol (Vitamin D2) 1,250 mcg PO WE 11/29/21 03/23/22 History [Drisdol (50,000 Iu)] Tamsulosin HCl [Flomax] 0.4 mg PO DAILY 11/29/21 03/23/22 History Acetaminophen Tab [Tylenol] 650 mg PO Q6HR PRN tab 12/01/21 03/23/22 Rx Rosuvastatin [Crestor] 20 mg PO DAILY 90 Days #90 tablet 12/01/21 03/23/22 Rx Levothyroxine Sodium [Synthroid] 25 mcg PO DAILY 03/23/22 03/23/22 History Naproxen [Naprosyn] 500 mg PO BID 03/23/22 03/23/22 History carvediloL [Coreg] 3.125 mg PO BID 03/23/22 03/23/22 History lisinopriL 30 mg PO DAILY 03/23/22 03/23/22 History Allergies Allergy/AdvReac Type Severity Reaction Status Date / Time No Known Allergies Allergy Verified 03/23/22 15:09 Physical Exam Vitals: Vital Signs Temp Pulse Pulse Resp BP BP BP 03/24/22 02:00 98.0 F 84 16 03/23/22 22:45 97.5 F L 70 18 03/23/22 21:24 98.1 F 73 18 158/83 03/23/22 16:50 78 16 138/75 03/23/22 15:12 18 138/90 125/80 03/23/22 15:11 71 18 03/23/22 13:44 97.2 F L 55 L 18 104/92 BP Pulse Ox 03/24/22 02:00 150/71 98 03/23/22 22:45 174/90 98 03/23/22 21:24 98 03/23/22 16:50 99 03/23/22 15:12 151/77 03/23/22 15:11 98 03/23/22 13:44 99 Intake and Output 03/23/22 03/24/22 03/24/22 22:59 06:59 14:59 Other: # Voids 2 Weight 83.461 kg Results 03/23/22 14:08 03/23/22 15:58 Cardiac Enzymes 03/23/22 03/23/22 03/23/22 Range/Units 15:58 15:58 18:59 AST 57 (17-59) U/L Troponin I <0.012 <0.012 (0.000-0.034) ng/mL 03/23/22 Range/Units 21:27 AST (17-59) U/L Troponin I <0.012 (0.000-0.034) ng/mL Coagulation 03/23/22 Range/Units 15:58 PT 10.5 (9.0-12.0) sec APTT 22.6 (22.0-30.0) sec CBC 03/23/22 Range/Units 14:08 WBC 5.6 (3.8-10.6) k/uL RBC 3.89 L (4.30-5.90) m/uL Hgb 12.6 L (13.0-17.5) gm/dL Hct 40.8 (39.0-53.0) % Plt Count 164 (150-450) k/uL Comprehensive Metabolic Panel 10/11/22 Range/Units 15:58 Sodium 144 (137-145) mmol/L Potassium 4.1 (3.5-5.1) mmol/L Chloride 110 H (98-107) mmol/L Carbon Dioxide 24 (22-30) mmol/L BUN 16 (9-20) mg/dL Creatinine 0.95 (0.66-1.25) mg/dL Glucose 89 (74-99) mg/dL Calcium 9.0 (8.4-10.2) mg/dL AST 57 (17-59) U/L ALT 45 (4-49) U/L Alkaline Phosphatase 84 (38-126) U/L Total Protein 6.6 (6.3-8.2) g/dL Albumin 3.4 L (3.5-5.0) g/dL Current Medications Generic Name Dose Route Start Last Admin Trade Name Freq PRN Reason Stop Dose Admin Aspirin 325 mg 03/24/22 09:00 Aspirin 325 Mg Tab PO DAILY HUBERT Nitroglycerin 0.4 mg 03/23/22 17:25 Nitroglycerin Sl Tabs 0.4 Mg Tab SUBLINGUAL Q5M PRN Chest Pain Intake and Output 03/23/22 03/24/22 03/24/22 22:59 06:59 14:59 Other: # Voids 2 Weight 83.461 kg 03/23/22 14:08 03/23/22 15:58
[2022-03-24] MEDS ORDERED: ASPIRIN 325 MG TAB PO SCH (09:00)
[2022-03-24] MEDS ORDERED: REGADENOSON 0.4 MG/5 ML SYRINGE IV ONE (09:50)
[2022-03-24 10:25] LABS: Chol/HDL Ratio 3.15 Ratio; LDL Cholesterol,Calculated 71.1 mg/dL (0.0-131.0); VLDL Calculation 12.86 mg/dL (5.00-40.00)
--- NOTE | 2022-03-24 12:06 | NM ---
EXAMINATION TYPE: NM stress lexiscan cardiolite DATE OF EXAM: 03/24/2022 COMPARISON: NONE HISTORY: 76-year-old male syncope TECHNIQUE: After the intravenous administration of 9.9 mCi Tc 99m Sestamibi - Cardiolite resting SPE CT images acquired 90 minutes post injection. The patient received 0.4mg Lexiscan, 24.3 mCi Tc 99m Sestamibi - Stress images obtained [address] injection FINDINGS: Review of stress and rest SPECT images demonstrates large perfusion defect along the inferior wall wh ich is more pronounced on the rest images. No distinct reversibility is seen. Gated analysis shows no rmal wall motion estimated left ventricular ejection fraction is measured at 41 %. TID is calculated at 1.07, upper limits of normal. IMPRESSION: 1. Inferior wall perfusion defect could represent artifact from prominent diaphragmatic attenuation v ersus old infarct. The former is favored. Otherwise, no discrete reversibility is seen. 2. Note that the patient's estimated LVEF is measured at 41%. Further evaluation as clinically indica jessi.
--- NOTE | 2022-03-24 12:48 | CA ---
Lexiscan Nuclear Stress Test Report Name: Prince Kin Exam Date: 03/24/2022 09:44 Exam Location: [place] Stress Ht (in): 73 Wt (lb): 184 BSA: 2.08 Ordering Phys: Jon Thomas DO Referring Phys: NEO, Technologist: Theodore Velazco Age: 76 Gender: M : 1945 Procedure CPT: Indications: Reflex order-Stress test ICD-10 Codes: Patient History: Syncope Medications: Meds past 24 hrs: Pretest Chest Pain: STRESS TEST Lexiscan Protocol Exercise Duration (min:sec): 01:[address] Depressions (mm): Angina Score: Rodney Score: Resting HR (bpm): 63 Peak HR (bpm): 94 Resting BP (mmHg): 186 / 94 Peak BP (mmHg): 142 / 78 MPHR: 145 Target HR: 123 % MPHR: 65 METS: 1.0 Total Dose: Peak Dose: Atropine: Double Product: 79145 BP Response: Stress Termination: INFUSION COMPLETE Stress Symptoms: NO SYMPTOMS Stress Summary: ECG ANALYSIS Resting ECG: Stress ECG: CONCLUSIONS At baseline EKG showed normal sinus rhythm, normal axis, T-wave inversions lead 3 and aVF. Patient recieved IV infusion of Lexiscan 0.4mg and at peak infusion EKG showed significant change from baseline. Conclusions: 1. Nonspecific stress EKG portion segmenter baseline EKG abnormalities. 2. Nuclear imaging to be reported separately. Dr. Jon Thomas DO (Electronically Signed) Final Date: 24 March 2022 12:47
--- NOTE | 2022-03-24 14:20 | P.HPIM ---
History of Present Illness H&P Date: 03/24/22 Prince Sanderson, is a 76-year-old male who presented to [facility] emergency room with a chief complaint of syncope, patient stated that he had the sudden onset of diaphoresis, followed by total loss of consciusness, he had a similar episode in November with sudden onset of diaphoresis and then a syncopal episode. He was evaluated in the emergency room vital examination on presentation revealed a temperature of 97.5 heart 55 respiration 18 blood pressure of 104/92 pulse Ox 99% on room air Laboratory data reveals a WBC 5.6 HGB 12.6 platelet count 164 Testing in the emergency room revealed EKG revealed sinud bradycardia and T wave abnormalities in inferior leads Patient was admitted to medical floor for further evaluation and treatment, cardiology consultation requested. Past Medical History Past Medical History: Hypertension, Syncope History of Any Multi-Drug Resistant Organisms: None Reported Past Surgical History: No Surgical Hx Reported Past Anesthesia/Blood Transfusion Reactions: No Reported Reaction Past Psychological History: No Psychological Hx Reported Smoking Status: Never smoker Past Alcohol Use History: None Reported Past Drug Use History: None Reported - Past Family History Father Family Medical History: No Reported History Additional Family Medical History / Comment(s): at age 46 Mother Additional Family Medical History / Comment(s): breast cancer. age 95 Medications and Allergies Home Medications Medication Instructions Recorded Confirmed Type Docusate Sodium [Dok] 100 mg PO BID 11/29/21 03/23/22 History Ergocalciferol (Vitamin D2) 1,250 mcg PO WE 11/29/21 03/23/22 History [Drisdol (50,000 Iu)] Tamsulosin HCl [Flomax] 0.4 mg PO DAILY 11/29/21 03/23/22 History Acetaminophen Tab [Tylenol] 650 mg PO Q6HR PRN tab 12/01/21 03/23/22 Rx Rosuvastatin [Crestor] 20 mg PO DAILY 90 Days #90 tablet 12/01/21 03/23/22 Rx Levothyroxine Sodium [Synthroid] 25 mcg PO DAILY 03/23/22 03/23/22 History Naproxen [Naprosyn] 500 mg PO BID 03/23/22 03/23/22 History carvediloL [Coreg] 3.125 mg PO BID 03/23/22 03/23/22 History lisinopriL 30 mg PO DAILY 03/23/22 03/23/22 History Allergies Allergy/AdvReac Type Severity Reaction Status Date / Time No Known Allergies Allergy Verified 03/23/22 15:09 Physical Exam Vitals: Vital Signs Temp Pulse Pulse Resp BP BP BP 03/24/22 07:00 97.9 F 64 18 03/24/22 02:00 98.0 F 84 16 03/23/22 22:45 97.5 F L 70 18 03/23/22 21:24 98.1 F 73 18 158/83 03/23/22 16:50 78 16 138/75 03/23/22 15:12 18 138/90 125/80 03/23/22 15:11 71 18 03/23/22 13:44 97.2 F L 55 L 18 104/92 BP Pulse Ox 03/24/22 07:00 148/70 97 03/24/22 02:00 150/71 98 03/23/22 22:45 174/90 98 03/23/22 21:24 98 03/23/22 16:50 99 03/23/22 15:12 151/77 03/23/22 15:11 98 03/23/22 13:44 99 Intake and Output 03/23/22 03/24/22 03/24/22 22:59 06:59 14:59 Output Total 200 Balance -200 Output: Urine 200 Other: # Voids 2 # Bowel Movements 0 Weight 83.461 kg In general patient is alert and oriented x 3 in no distress HEENT head normocephalic and atraumatic Neck is supple no JVD no goiter no lymphadenopathy no carotid bruit Chest examination is clear to auscultation no crackles no wheezing Cardiac exam reveals regular heart sounds S1 and S2 no gallops no murmurs Abdomen is soft nontender no organomegaly with normal bowel sounds Extremity exam reveals no edema no cyanosis or clubbing Neurological examination reveals no gross focal deficits Results CBC & Chem 7: 03/23/22 14:08 03/23/22 15:58 Labs: Abnormal Lab Results - Last 24 Hours (Table) 03/23/22 03/23/22 Range/Units 14:08 15:58 RBC 3.89 L (4.30-5.90) m/uL Hgb 12.6 L (13.0-17.5) gm/dL MCV 105.0 H (80.0-100.0) fL MCHC 30.9 L (31.0-37.0) g/dL Chloride 110 H (98-107) mmol/L Albumin 3.4 L (3.5-5.0) g/dL Thrombosis Risk Factor Assmnt - Choose All That Apply Other Risk Factors: Yes Each Risk Factor Represents 3 Points: Age 75 years or older Other congenital or acquired thrombophilia - If yes, enter type in comment: No Thrombosis Risk Factor Assessment Total Risk Factor Score: 3 Thrombosis Risk Factor Assessment Level: Moderate Risk Assessment and Plan Plan: Episode of syncope Underlying history of hypertension Borderline hypotension on presentation Abnormal EKG with T wave abnormalities in inferior leads At this time patient is admitted to telemetry floor home medications reviewed and reordered Cardiology consultation was requested, will follow closely
[2022-03-24] MEDS: ENOXAPARIN 40 MG/0.4 ML SYRINGE SQ SCH (17:01)
[2022-03-24] MEDS ORDERED: ACETAMINOPHEN TAB 325 MG TAB PO PRN (19:16)
[2022-03-24] MEDS ORDERED: ERGOCALCIFEROL 1,250 MCG (50,000 IU) CAPSULE PO SCH (21:00)
[2022-03-24] MEDS: carvediloL 3.125 MG TAB PO SCH (21:08)
[2022-03-24] MEDS: DOCUSATE 100 MG CAP PO SCH (21:08)
[2022-03-24] MEDS: NAPROXEN 250 MG TAB PO SCH (21:08)
[2022-03-25 04:14] VITALS: RESP 16
[2022-03-25] MEDS ORDERED: LEVOTHYROXINE 25 MCG TAB PO SCH (06:30)
[2022-03-25] MEDS: carvediloL 3.125 MG TAB PO SCH (08:35)
[2022-03-25] MEDS: NAPROXEN 250 MG TAB PO SCH (08:35)
[2022-03-25] MEDS: ENOXAPARIN 40 MG/0.4 ML SYRINGE SQ SCH (08:35)
[2022-03-25] MEDS: DOCUSATE 100 MG CAP PO SCH (08:36)
[2022-03-25] MEDS ORDERED: lisinopriL 10 MG TAB PO SCH (09:00)
[2022-03-25] MEDS ORDERED: ATORVASTATIN 40 MG TAB PO SCH (09:00)
[2022-03-25] MEDS ORDERED: ASPIRIN 81 MG PO SCH (09:00)
[2022-03-25] MEDS ORDERED: TAMSULOSIN 0.4 MG CAP.ER.24H PO SCH (09:00)
--- NOTE | 2022-03-25 09:43 | P.PN ---
Subjective Progress Note Date: 03/25/22 HISTORY OF PRESENT ILLNESS: Patient is pleasant 76 -year-old male with history of hypertension, syncope status post loop recorder implant who presents secondary syncope. He did have similar episode in November where he had sudden onset of diaphoresis and then a syncopal episode. Given symptoms a loop recorder was placed. He has done well since and has had no other episodes however yesterday was sitting in a chair and suddenly started feeling ready and then fell backwards however family member was there to catch him. Shortly after he returned to normal. Today he feels normal . Blood pressure mildly low at 109/90 when he presented to the hospital. Previous echo November 2021 showed EF 50-55% with mild mitral regurgitation. EKG shows sinus bradycardia with T-wave inversions in lead 3 and aVF which is worsened from EKG in November. He denies any chest pain or pressure. He has not believe he has had a stress test in the office. Troponins noted to be normal 3. 03/25/2022 Patient examined this morning at the bedside. Patient denies chest pain or press ure. Denies SOB. Denies dizziness or lightheadedness. Loop recorder interrogation revealed 1 episode of a sinus pause around 4 seconds on 03/14/2022 at 6:00 in the morning. Lexiscan stress test revealed "inferior wall perfusion defect could represent artifact from prominent diaphragmatic attenuation versus old infarct. The former is favored. Otherwise, no discrete reversibility is seen" per radiology dictation. Blood pressures have improved with a systolic in the 140-150s. PHYSICAL EXAM: VITAL SIGNS: Reviewed. GENERAL: Well-developed in no acute distress. NECK: Supple. No JVD or thyromegaly LUNGS: Respirations even and unlabored. Lungs essentially clear to auscultation bilaterally. HEART: Regular rate and rhythm. S1 and S2 heard. EXTREMITIES: Normal range of motion. No clubbing or cyanosis. Peripheral pulses intact. No lower extremity edema ASSESSMENT: 1. Syncope 2 with proceeding diaphoresis 2. Abnormal EKG T-wave inversions, rule out ischemia 3. Hypertension, borderline low when presented to emergency department 109 over 90s, resolved 4. Sinus bradycardia in the 50s, resolved 5. Status post loop recorder implant PLAN: Obtain 2D echo to assess cardiac structure and function Continue telemetry monitoring Resume Lisinopril at a lower dose of 10mg daily Patient may be discharge this afternoon from a cardiac standpoint Nurse practitioner note has been reviewed by physician. Signing provider agrees with the documented findings, assessment, and plan of care. Objective - Vital Signs Vital signs: Vital Signs Temp 98.3 F 03/25/22 07:00 Pulse 65 03/25/22 07:00 Resp 16 03/25/22 07:00 BP 154/82 03/25/22 07:00 Pulse Ox 98 03/25/22 07:00 FiO2 Intake & Output 03/24/22 03/25/22 03/25/22 18:59 06:59 18:59 Intake Total 240 1000 Output Total 400 Balance -160 1000 Intake: Oral 240 1000 Output: Urine 400 Other: Voiding Method Toilet Urinal # Bowel Movements 0 - Labs CBC & Chem 7: 03/23/22 14:08 03/23/22 15:58 Labs: Abnormal Lab Results - Last 24 Hours (Table) 03/24/22 Range/Units 05:36 HDL Cholesterol 39.00 L (40.00-60.00) mg/dL
[2022-03-25 10:51] LABS: Basophils # (A) 0.02 X 10*3/uL (0.00-0.10); Basophils % (A) 0.3 %; Eosinophils # (A) 0.25 X 10*3/uL (0.04-0.35); Eosinophils % (A) 4.2 %; HCT 29.7 % (39.6-50.0); HGB 9.9 g/dL (13.0-17.0); Immature Grans, Automated 0.2 %; Lymphocytes # (A) 2.97 X 10*3/uL (0.90-5.00); Lymphocytes % (A) 50.4 %; MCH 33.6 pg (27.0-32.0); MCHC 33.3 g/dL (32.0-37.0); MCV 100.7 fL (80.0-97.0); Mean Platelet Volume 10.6 fL (9.5-12.2); Monocytes # (A) 0.64 X 10*3/uL (0.20-1.00); Monocytes % (A) 10.9 %; NRBC Per 100 WBC 0 /100 WBCS (0.0-0.0); Platelet Count 174 X 10*3/uL (140-440); RBC 2.95 X 10*6/uL (4.40-5.60); RDW 14.4 % (11.5-14.5); WBC 5.89 X 10*3/uL (4.50-10.00)
[2022-03-25 11:11] LABS: African American GFR (CKD) 98.7 (60.0-200.0); Albumin 3.1 g/dL (3.8-4.9); Albumin/Globulin Ratio 1.22 (1.60-3.17); Anion Gap 6.4 mmol/L (10.00-18.00); BUN/Creat Ratio 14.79 Ratio (12.00-20.00); Blood Urea Nitrogen 12.6 mg/dL (9.0-27.0); Calcium 8.6 mg/dL (8.7-10.3); Carbon Dioxide 25.3 mmol/L (20.0-27.5); Globulin 2.5 g/dL (1.6-3.3); Non-African American GFR(CKD) 85.2 (60.0-200.0); Potassium 3.9 mmol/L (3.5-5.5); Total Bilirubin 0.8 mg/dL (0.30-1.20); Total Protein 5.6 g/dL (6.2-8.2)
[2022-03-25 12:46] VITALS: BP 154/74; PULSE 57; TEMP 98.5
--- NOTE | 2022-03-25 17:25 | P.DS ---
Providers Date of admission: 03/23/22 18:22 Expected date of discharge: 03/25/22 Attending physician: Carmina Haque Consults: 03/23/22 17:25 Consult Physician Urgent Consulting Provider: [facility] Consult Reason/Comments: Syncope Do you want consulting provider notified?: Yes Primary care physician: Carmina Shabnam [facility] Course: Diagnosis on discharge: Episode of syncope Underlying history of hypertension Borderline hypotension on presentation Abnormal EKG with T wave abnormalities in inferior leads Hospital course: Prince Sanderson, is a 76-year-old male who presented to [facility] emergency room with a chief complaint of syncope, patient stated that he had the sudden onset of diaphoresis, followed by total loss of consciusness, he had a similar episode in November with sudden onset of diaphoresis and then a syncopal episode. He was evaluated in the emergency room vital examination on presentation revealed a temperature of 97.5 heart 55 respiration 18 blood pressure of 104/92 pulse Ox 99% on room air Laboratory data reveals a WBC 5.6 HGB 12.6 platelet count 164 Testing in the emergency room revealed EKG revealed sinud bradycardia and T wave abnormalities in inferior leads Patient was admitted to medical floor for further evaluation and treatment, cardiology consultation requested. On 03/25/2022 patient was seen and examined on the telemetry floor he is alert and oriented 3 in no apparent distress, he denies any dizziness or lightheadedness no chest pain no shortness of breath no cough no nausea or vomiting no abdominal pain no diarrhea and no urinary symptoms , he was reevaluated by cardiology today and was cleared for discharge. During this admission dose of lisinopril was decreased from 30 mg daily to 10 mg daily aspirin 81 mg was added to his medication regimen, will follow in the office in 2-3 days will arrange for follow-up with cardiology as outpatient in the next 1- 2 weeks Plan - Discharge Summary New Discharge Prescriptions: New Aspirin 81 mg PO DAILY tab lisinopriL [Zestril] 10 mg PO DAILY tab Continue Tamsulosin HCl [Flomax] 0.4 mg PO DAILY Rosuvastatin [Crestor] 20 mg PO DAILY 90 Days #90 tablet Acetaminophen Tab [Tylenol] 650 mg PO Q6HR PRN tab PRN Reason: Mild Pain Or Fever > 100.5 Levothyroxine Sodium [Synthroid] 25 mcg PO DAILY Docusate Sodium [Dok] 100 mg PO BID Ergocalciferol (Vitamin D2) [Drisdol (50,000 Iu)] 1,250 mcg PO WE carvediloL [Coreg] 3.125 mg PO BID Discontinued lisinopriL 30 mg PO DAILY Naproxen [Naprosyn] 500 mg PO BID Discharge Medication List Docusate Sodium [Dok] 100 mg PO BID 11/29/21 [History] Ergocalciferol (Vitamin D2) [Drisdol (50,000 Iu)] 1,250 mcg PO WE 11/29/21 [History] Tamsulosin HCl [Flomax] 0.4 mg PO DAILY 11/29/21 [History] Acetaminophen Tab [Tylenol] 650 mg PO Q6HR PRN tab 12/01/21 [Rx] Rosuvastatin [Crestor] 20 mg PO DAILY 90 Days #90 tablet 12/01/21 [Rx] Levothyroxine Sodium [Synthroid] 25 mcg PO DAILY 03/23/22 [History] carvediloL [Coreg] 3.125 mg PO BID 03/23/22 [History] Aspirin 81 mg PO DAILY tab 03/25/22 [Rx] lisinopriL [Zestril] 10 mg PO DAILY tab 03/25/22 [Rx] Follow up Appointment(s)/Referral(s): Carmina Haque MD [Primary Care Provider] - 1-2 days Patient Instructions/Handouts: Syncope (DC), Cardiac Stress Test (DC) Discharge Disposition: HOME SELF-CARE
--- NOTE | 2022-03-26 12:59 | CA ---
Transthoracic Echo Report Name: Prince Kin Age: 76 Gender: M : 1945 Exam Date: 03/25/2022 08:51 Exam Location: [place] Echo Ht (in): 73 Wt (lb): 184 Ordering Physician: Iveth Bueno Attending/Referring Phys: [id number], Myles Occupational Psychologist Sarah Bautista RDCS Procedure CPT: Indications: LV function Cardiac Hx: Technical Quality: Fair Contrast 1: Total Dose (mL): Contrast 2: Total Dose (mL): MEASUREMENTS (Male / Female) Normal Values 2D ECHO LV Diastolic Diameter PLAX 4.3 cm 4.2 - 5.9 / 3.9 - 5.3 cm LV Systolic Diameter PLAX 2.8 cm IVS Diastolic Thickness 1.2 cm 0.6 - 1.0 / 0.6 - 0.9 cm LVPW Diastolic Thickness 1.2 cm 0.6 - 1.0 / 0.6 - 0.9 cm LV Relative Wall Thickness 0.6 RV Internal Dim ED PLAX 3.2 cm LA Volume 58.6 cm??? 18 - 58 / 22 - 52 cm??? M-MODE Aortic Root Diameter MM 2.8 cm LA Systolic Diameter MM 4.2 cm LA Ao Ratio MM 1.5 AV Cusp Separation MM 1.8 cm DOPPLER AV Peak Velocity 135.0 cm/s AV Peak Gradient 7.3 mmHg LVOT Peak Velocity 97.7 cm/s LVOT Peak Gradient 3.8 mmHg MV Area PHT 2.8 cm??? Mitral E Point Velocity 79.6 cm/s Mitral A Point Velocity 119.9 cm/s Mitral E to A Ratio 0.7 MV Deceleration Time 272.6 ms MV E' Velocity 7.3 cm/s Mitral E to MV E' Ratio 10.9 FINDINGS Left Ventricle Mildly increased left ventricular wall thickness. Normal left ventricular systolic function with no obvious regional wall motion abnormalities. Left ventricular ejection fraction is estimated at 55-60%. Right Ventricle Normal right ventricular size and function. Right ventricular systolic pressure within normal limits. Right Atrium Normal right atrial size. Left Atrium Normal left atrial size. Mitral Valve Mitral valve thickened. Mild mitral annular calcification. Aortic Valve No aortic valve stenosis or regurgitation. Tricuspid Valve Structurally normal tricuspid valve. Mild tricuspid regurgitation. Pulmonic Valve Trace pulmonic regurgitation. Pericardium No pericardial effusion. Normal pericardium. Aorta Normal size aortic root and proximal ascending aorta. CONCLUSIONS Left ventricular ejection fraction 55-60% Mild mitral annular calcification Mild tricuspid regurgitation Trace pulmonic regurgitation No pericardial effusion Previewed by: Dr. Jon Thomas DO (Electronically Signed) Final Date: 26 March 2022 12:59
== END 2022-03-25 13:35 | disposition home or self-care (01) ==
LOC: EC 13:39 → 6NMEDSUR 18:22
PROVIDERS: ADMIT Internal Medicine; ATTEND Internal Medicine
DX: R55 Syncope and collapse (principal); I10 Essential (primary) hypertension; I95.9 Hypotension, unspecified; R94.31 Abnormal electrocardiogram [ECG] [EKG]; R00.1 Bradycardia, unspecified; I34.81 Nonrheumatic mitral (valve) annulus calcification; I07.1 Rheumatic tricuspid insufficiency; I37.1 Nonrheumatic pulmonary valve insufficiency; Z79.899 Other long term (current) drug therapy; Z79.890 Hormone replacement therapy; Z80.3 Family history of malignant neoplasm of breast
CPT/HCPCS: 96372 ×2; 99285; 36415; 93005; 93017; 93306; 80061; 80053 ×2; 83735; 84484; 85025 ×2; 85610; 85730; 71046; 78452; G0378 ×3; A9500; J1650 ×2; J2785

== ENCOUNTER 2023-05-18 12:29 | Emergency (ER) | payer MEDICARE ==
[2023-05-18 12:41] VITALS: TEMP 97.8
--- NOTE | 2023-05-18 13:15 | ED ---
General Adult HPI - General Chief complaint: Abdominal Pain Stated complaint: Abd Pain Time Seen by Provider: 05/18/23 12:40 Source: patient, RN notes reviewed, old records reviewed Mode of arrival: ambulatory Limitations: no limitations - History of Present Illness Initial comments: This is a 77-year-old male who presents emergency Department complaining of abdominal pain. Patient states his been ongoing about a month. Patient denies any nausea vomiting or diarrhea. Patient denies any fever chills. Patient denies chest pain difficulty breathing. Patient denies any constipation. Patient denies any dysuria hematuria urinary frequency. Niece who takes care of him stated that he is also been a little bit weaker lately. - Related Data Home Medications Medication Instructions Recorded Confirmed Docusate Sodium [Dok] 100 mg PO BID 11/29/21 05/18/23 Tamsulosin HCl [Flomax] 0.4 mg PO DAILY 11/29/21 05/18/23 Levothyroxine Sodium [Synthroid] 25 mcg PO DAILY 03/23/22 05/18/23 ALPRAZolam [Xanax] 0.25 mg PO BID PRN 05/18/23 05/18/23 Ascorbic Acid [Vitamin C] 1,000 mg PO DAILY 05/18/23 05/18/23 Cholecalciferol [Vitamin D3 (25 50 mcg PO DAILY 05/18/23 05/18/23 Mcg = 1000 Iu)] Ferrous Sulfate [Iron] 325 mg PO DAILY 05/18/23 05/18/23 Multivitamins, Thera [Multivitamin 1 tab PO DAILY 05/18/23 05/18/23 (formulary)] Pantoprazole Sodium [Protonix] 40 mg PO DAILY 05/18/23 05/18/23 Rosuvastatin Calcium 5 mg PO DAILY 05/18/23 05/18/23 Thiamine [Vitamin B-1] 100 mg PO DAILY 05/18/23 05/18/23 carvediloL [Coreg] 6.25 mg PO BID 05/18/23 05/18/23 lisinopriL [Prinivil] 20 mg PO DAILY 05/18/23 05/18/23 Previous Rx's Medication Instructions Recorded Aspirin 81 mg PO DAILY tab 03/25/22 Allergies Allergy/AdvReac Type Severity Reaction Status Date / Time No Known Allergies Allergy Verified 05/18/23 16:30 Review of Systems ROS Statement: Those systems with pertinent positive or pertinent negative responses have been documented in the HPI. ROS Other: All systems not noted in ROS Statement are negative. Past Medical History Past Medical History: Hypertension, Syncope History of Any Multi-Drug Resistant Organisms: None Reported Past Surgical History: No Surgical Hx Reported Past Anesthesia/Blood Transfusion Reactions: No Reported Reaction Past Psychological History: No Psychological Hx Reported Smoking Status: Never smoker Past Alcohol Use History: None Reported Past Drug Use History: None Reported - Past Family History Father Family Medical History: No Reported History Additional Family Medical History / Comment(s): at age 46 Mother Additional Family Medical History / Comment(s): breast cancer. age 95 General Exam - General Exam Comments Initial Comments: GENERAL: Patient is well-developed and well-nourished. Patient is nontoxic and well- hydrated and is in no acute distress. ENT: Neck is soft and supple. No significant lymphadenopathy is noted. Oropharynx is clear. Moist mucous membranes. Neck has full range of motion without eliciting any pain. EYES: The sclera were anicteric and conjunctiva were pink and moist. Extraocular movements were intact and pupils were equal round and reactive to light. Eyelids were unremarkable. PULMONARY: Unlabored respirations. Good breath sounds bilaterally. No audible rales rhonchi or wheezing was noted. CARDIOVASCULAR: There is a regular rate and rhythm without any murmurs gallops or rubs. ABDOMEN: Soft and nontender with normal bowel sounds. SKIN: Skin is clear with no lesions or rashes and otherwise unremarkable. NEUROLOGIC: Patient is alert and oriented x3. Cranial nerves II through XII are grossly intact. Motor and sensory are also intact. Normal speech, volume and content. Symmetrical smile. MUSCULOSKELETAL: Normal extremities with adequate strength and full range of motion. No lower extremity swelling or edema. No calf tenderness. LYMPHATICS: No significant lymphadenopathy is noted PSYCHIATRIC: Normal psychiatric evaluation. Limitations: no limitations Course Vital Signs 05/18/23 12:31 Temperature 97.8 F Pulse Rate 83 Respiratory 18 Rate Blood Pressure 170/95 O2 Sat by Pulse 97 Oximetry Medical Decision Making - Medical Decision Making Was pt. sent in by a medical professional or institution (, PA, THERMOSTAT MACHINE TENDER, urgent care, hospital, or [facility]...) When possible be specific @ -No Did you speak to anyone other than the patient for history (EMS, parent, family, police, friend...)? What history was obtained from this source @ -No Did you review nursing and triage notes (agree or disagree)? Why? @ -I reviewed and agree with nursing and triage notes Were old charts reviewed (outside hosp., previous admission, EMS record, old E KG, old radiological studies, urgent care reports/EKG's, ch[facility] records)? Report findings @ -Prior charts from prior lab work on this patient Differential Diagnosis (chest pain, altered mental status, abdominal pain women, abdominal pain men, vaginal bleeding, weakness, fever, dyspnea, syncope, headache, dizziness, GI bleed, back pain, seizure, CVA, palpatations, mental health, musculoskeletal)? @ -Differential Abdominal Pain Men: Appendicitis, cholecystitis, diverticulosis, ischemic bowel, pancreatitis, hepatitis, UTI, gastroenteritis, AAA, incarcerated hernia, bowel obstruction, constipation, inflammatory bowel, hepatitis, peptic ulcer disease, splenic infarction, perforated viscus, testicular torsion, this is not meant to be an all-inclusive list EKG interpreted by me (3pts min.). @ -As above X-rays interpreted by me (1pt min.). @ -KUB shows no acute abnormality CT interpreted by me (1pt min.). @ -None done U/S interpreted by me (1pt. min.). @ -None done What testing was considered but not performed or refused? (CT, X-rays, U/S, labs)? Why? @ -I considered a CAT scan of the abdomen and pelvis. However patient had no point tenderness and was eating a sandwich when I went back into reevaluate the patient. Patient had no vomiting or diarrhea. What meds were considered but not given or refused? Why? @ -None Did you discuss the management of the patient with other professionals (professionals i.e. , PA, THERMOSTAT MACHINE TENDER, lab, RT, psych nurse, perinatal social worker, calculating machine mechanic, teacher, forest fire officer, case assistant)? Give summary @ -No Was smoking cessation discussed for >3mins.? @ -No Was critical care preformed (if so, how long)? @ -No Were there social determinants of health that impacted care today? How? (Homelessness, low income, unemployed, alcoholism, drug addiction, transportation, low edu. Level, literacy, decrease access to med. care, alf, rehab)? @ -No Was there de-escalation of care discussed even if they declined (Discuss DNR or withdrawal of care, Hospice)? DNR status @ -No What co-morbidities impacted this encounter? (DM, HTN, Smoking, COPD, CAD, Cancer, CVA, ARF, Chemo, Hep., AIDS, mental health diagnosis, sleep apnea, morbid obesity)? @ -None Was patient admitted / discharged? Hospital course, mention meds given and route, prescriptions, significant lab abnormalities, going to OR and other pertinent info. @ -Patient was no distress throughout the ED stay he was eating more than one time when I went back into the room and drinking fine. No nausea no vomiting no diarrhea and in no distress. Patient will follow-up with his primary medical care doctor Undiagnosed new problem with uncertain prognosis? @ -No Drug Therapy requiring intensive monitoring for toxicity (Heparin, Nitro, Insulin, Cardizem)? @ -No Were any procedures done? @ -No Diagnosis/symptom? @ -Abdominal pain Acute, or Chronic, or Acute on Chronic? @ -Acute Uncomplicated (without systemic symptoms) or Complicated (systemic symptoms)? @ -Complicated - Lab Data Result diagrams: 05/18/23 13:31 05/18/23 13:31 Lab Results 05/18/23 05/18/23 Range/Units 13:31 13:31 WBC 6.6 (3.8-10.6) k/uL RBC 4.04 L (4.30-5.90) m/uL Hgb 14.3 (13.0-17.5) gm/dL Hct 43.3 (39.0-53.0) % MCV 107.2 H (80.0-100.0) fL MCH 35.4 H (25.0-35.0) pg MCHC 33.0 (31.0-37.0) g/dL RDW 13.4 (11.5-15.5) % Plt Count 167 (150-450) k/uL MPV 8.0 Neutrophils % 41 % Lymphocytes % 44 % Monocytes % 6 % Eosinophils % 5 % Basophils % 1 % Neutrophils # 2.7 (1.3-7.7) k/uL Lymphocytes # 2.9 (1.0-4.8) k/uL Monocytes # 0.4 (0-1.0) k/uL Eosinophils # 0.3 (0-0.7) k/uL Basophils # 0.0 (0-0.2) k/uL Macrocytosis Moderate Sodium 141 (137-145) mmol/L Potassium 4.1 (3.5-5.1) mmol/L Chloride 105 (98-107) mmol/L Carbon Dioxide 29 (22-30) mmol/L Anion Gap 7 mmol/L BUN 13 (9-20) mg/dL Creatinine 0.86 (0.66-1.25) mg/dL Est GFR (CKD-EPI)AfAm >90 (>60 ml/min/1.73 sqM) Est GFR (CKD-EPI)NonAf 84 (>60 ml/min/1.73 sqM) Glucose 107 H (74-99) mg/dL Calcium 9.2 (8.4-10.2) mg/dL Total Bilirubin 1.2 (0.2-1.3) mg/dL AST 105 H (17-59) U/L ALT 85 H (4-49) U/L Alkaline Phosphatase 79 (38-126) U/L Total Protein 7.3 (6.3-8.2) g/dL Albumin 3.6 (3.5-5.0) g/dL Amylase 77 (30-110) U/L Lipase 125 (23-300) U/L Disposition Clinical Impression: Abdominal pain Disposition: HOME SELF-CARE Instructions (If sedation given, give patient instructions): Abdominal Pain (ED) Is patient prescribed a controlled substance at d/c from ED?: No Referrals: Carmina Haque MD [Primary Care Provider] - 1-2 days Time of Disposition: 17:31
--- NOTE | 2023-05-18 13:58 | XR ---
EXAMINATION TYPE: XR KUB DATE OF EXAM: 05/18/2023 1:53 PM CLINICAL HISTORY: Abdominal pain TECHNIQUE: Two supine KUB images of the abdomen are obtained. COMPARISON: None. FINDINGS: Scattered gas is seen in non-distended small bowel loops. Gas and fecal material is seen in non-distended colon. There is no visceromegaly or abnormal calcification appreciated. The lung bases are clear and the osseous structures are intact. Some phleboliths overlie the lower pelvis. IMPRESSION: Overall nonobstructive bowel gas pattern.
[2023-05-18 14:01] LABS: Basophils % (A) 1 %; Eosinophils # (A) 0.3 k/uL (0-0.7); Eosinophils % (A) 5 %; HCT 43.3 % (39.0-53.0); HGB 14.3 gm/dL (13.0-17.5); Lymphocytes # (A) 2.9 k/uL (1.0-4.8); Lymphocytes % (A) 44 %; MCH 35.4 pg (25.0-35.0); MCV 107.2 fL (80.0-100.0); Macrocytosis Moderate; Monocytes # (A) 0.4 k/uL (0-1.0); Monocytes % (A) 6 %; Neutrophils # (A) 2.7 k/uL (1.3-7.7); Neutrophils % (A) 41 %; Platelet Count 167 k/uL (150-450); RBC 4.04 m/uL (4.30-5.90); RDW 13.4 % (11.5-15.5); WBC 6.6 k/uL (3.8-10.6)
[2023-05-18 14:09] LABS: ALT 85 U/L (4-49); AST 105 U/L (17-59); African American GFR (CKD) >90 (>60 ml/min/1.73 sqM); Albumin 3.6 g/dL (3.5-5.0); Alkaline Phosphatase 79 U/L (38-126); Amylase 77 U/L (30-110); Anion Gap 7 mmol/L; Blood Urea Nitrogen 13 mg/dL (9-20); Calcium 9.2 mg/dL (8.4-10.2); Carbon Dioxide 29 mmol/L (22-30); Chloride 105 mmol/L (98-107); Glucose 107 mg/dL (74-99); Lipase 125 U/L (23-300); Non-African American GFR(CKD) 84 (>60 ml/min/1.73 sqM); Potassium 4.1 mmol/L (3.5-5.1); Sodium 141 mmol/L (137-145); Total Bilirubin 1.2 mg/dL (0.2-1.3); Total Protein 7.3 g/dL (6.3-8.2)
[2023-05-18 17:53] LABS: Appearance,Urine Slightly Cloudy (Clear); Color,Urine Orange; Mucus,Urine Moderate /hpf; RBC,Urine 9 /hpf (0-5); WBC,Urine 38 /hpf (0-5)
[2023-05-18 17:54] LABS: Bilirubin,Urine Negative (Negative); Blood,Urine Negative (Negative); Glucose,Urine (UA) Negative (Negative); Ketones,Urine Negative (Negative); Leukocyte Esterase,Urine Moderate (Negative); Nitrite,Urine Negative (Negative); Protein,Urine Trace (Negative); Specific Gravity,Urine 1.025 (1.001-1.035); Urobilinogen,Urine <2.0 mg/dL (<2.0)
[2023-05-18 18:06] VITALS: BP 190/113; PULSE 65; RESP 16
== END 2023-05-18 17:51 | disposition home or self-care (01) ==
LOC: EC 12:29
DX: R10.9 Unspecified abdominal pain (principal); I10 Essential (primary) hypertension; Z79.899 Other long term (current) drug therapy
CPT/HCPCS: 36415; 51798; 74018; 80053; 81001; 82150; 83690; 85025; 99285

== ENCOUNTER → 2023-06-09 | Outpatient (CLI) | payer MEDICARE ==
--- NOTE | 2023-06-09 15:46 | US ---
EXAMINATION TYPE: US liver DATE OF EXAM: 06/09/2023 COMPARISON: CLINICAL INDICATION: Male, 77 years old with history of R74.01 ELEVATION OF LEVELS OF LIVER TRANSAMIN ASE L; Abnormal labs. TECHNIQUE: Multiple sonographic images of the right upper quadrant are obtained. FINDINGS: EXAM MEASUREMENTS: Liver Length: 13.5 cm Gallbladder Wall: 0.2 cm CBD: 0.4 cm Right Kidney: 10.3 x 4.7 x 5.2 cm MACHINE BANDER AND CELLOPHANER NOTES:Limited due to overlying bowel gas Pancreas: Head and tail obscured by overlying bowel gas Liver: Scanned through ribs, limited visualization. No discrete mass or lesions seen Gallbladder: no stones or wall thickening visualized supine Evidence for sonographic Martinez's sign: neg CBD: wnl Right Kidney: No hydronephrosis or masses seen, limited lower pole. Some renal cortical thinning is suggested. IMPRESSION: Exam limited by bowel gas and intercostal views of the liver. No gallstones or biliary ductal dilatation.
== END | disposition home or self-care (01) ==
LOC: RADUSWWP 08:23
PROVIDERS: ATTEND Internal Medicine
DX: R74.01 Elevation of levels of liver transaminase levels (principal)
CPT/HCPCS: 76705

== ENCOUNTER 2024-02-27 11:31 | Emergency (ER) | payer MEDICARE ==
[2024-02-27 11:36] VITALS: RESP 18
--- NOTE | 2024-02-27 11:44 | ED ---
Fall HPI - General Chief Complaint: Fall Stated Complaint: fall Time Seen by Provider: 02/27/24 11:44 Source: patient, family, RN notes reviewed Mode of arrival: ambulatory - History of Present Illness Initial Comments: 78-year-old male presents emergency department accompanied by his niece and brother for chief complaint of a fall. Patient states that he was walking out of a doctor's appointment this morning when his knees "buckled "and he fell onto the pavement. Patient denies hitting his head or loss of consciousness at time of this event. He denies presyncopal symptoms such as chest pain, shortness of breath, dizziness, lightheadedness or fatigue before the time of the fall, states that her knees felt weak and this happens to him from time to time. Family at bedside denies patient hitting his head. Currently patient is endorsing right foot pain and mild left knee pain. Denies blood thinner use. No other acute complaints at this time - Related Data Home Medications Medication Instructions Recorded Confirmed Docusate Sodium [Dok] 100 mg PO BID 11/29/21 05/18/23 Tamsulosin HCl [Flomax] 0.4 mg PO DAILY 11/29/21 05/18/23 Levothyroxine Sodium [Synthroid] 25 mcg PO DAILY 03/23/22 05/18/23 ALPRAZolam [Xanax] 0.25 mg PO BID PRN 05/18/23 05/18/23 Ascorbic Acid [Vitamin C] 1,000 mg PO DAILY 05/18/23 05/18/23 Cholecalciferol [Vitamin D3 (25 50 mcg PO DAILY 05/18/23 05/18/23 Mcg = 1000 Iu)] Ferrous Sulfate [Iron] 325 mg PO DAILY 05/18/23 05/18/23 Multivitamins, Thera [Multivitamin 1 tab PO DAILY 05/18/23 05/18/23 (formulary)] Pantoprazole Sodium [Protonix] 40 mg PO DAILY 05/18/23 05/18/23 Rosuvastatin Calcium 5 mg PO DAILY 05/18/23 05/18/23 Thiamine [Vitamin B-1] 100 mg PO DAILY 05/18/23 05/18/23 carvediloL [Coreg] 6.25 mg PO BID 05/18/23 05/18/23 lisinopriL [Prinivil] 20 mg PO DAILY 05/18/23 05/18/23 Previous Rx's Medication Instructions Recorded Aspirin 81 mg PO DAILY tab 03/25/22 Allergies Allergy/AdvReac Type Severity Reaction Status Date / Time No Known Allergies Allergy Verified 02/27/24 11:36 Review of Systems ROS Statement: Those systems with pertinent positive or pertinent negative responses have been documented in the HPI. ROS Other: All systems not noted in ROS Statement are negative. Past Medical History Past Medical History: Hypertension, Syncope History of Any Multi-Drug Resistant Organisms: None Reported Past Surgical History: No Surgical Hx Reported Past Anesthesia/Blood Transfusion Reactions: No Reported Reaction Past Psychological History: No Psychological Hx Reported Smoking Status: Never smoker Past Alcohol Use History: None Reported Past Drug Use History: None Reported - Past Family History Father Family Medical History: No Reported History Additional Family Medical History / Comment(s): at age 46 Mother Additional Family Medical History / Comment(s): breast cancer. age 95 General Exam Limitations: no limitations General appearance: alert, in no apparent distress Head exam: Present: atraumatic, normocephalic, normal inspection Eye exam: Present: normal appearance, PERRL, EOMI. Absent: scleral icterus, conjunctival injection, periorbital swelling ENT exam: Present: normal exam, mucous membranes moist Respiratory exam: Present: normal lung sounds bilaterally. Absent: respiratory distress, wheezes, rales, rhonchi, stridor Cardiovascular Exam: Present: regular rate, normal rhythm, normal heart sounds. Absent: systolic murmur, diastolic murmur, rubs, gallop, clicks GI/Abdominal exam: Present: soft, normal bowel sounds. Absent: distended, tenderness, guarding, rebound, rigid Right Foot/Toe exam: Present: normal inspection, full ROM, tenderness (medial forefoot over DIP first digit). Absent: swelling, abrasion, laceration, ecchymosis Left Knee exam: Present: abrasion Gait: observed and normal Back exam: Present: normal inspection Neurological exam: Present: alert, oriented X3, CN II-XII intact Course Vital Signs 02/27/24 02/27/24 02/27/24 11:32 12:44 13:02 Temperature 98 F 98.1 F 98.1 F Pulse Rate 104 H 70 80 Respiratory 18 18 18 Rate Blood Pressure 156/78 179/89 165/89 O2 Sat by Pulse 98 97 97 Oximetry Medical Decision Making - Medical Decision Making Was pt. sent in by a medical professional or institution (, PA, AUTO APPRAISER, urgent care, hospital, or long term...) When possible be specific @ -No Did you speak to anyone other than the patient for history (EMS, parent, family, police, friend...)? What history was obtained from this source @ -Book to the patient's brother and niece at bedside who states that the patient did not hit his head or there is no loss of conscious at the time of this fall. Did you review nursing and triage notes (agree or disagree)? Why? @ -I reviewed and agree with nursing and triage notes Were old charts reviewed (outside hosp., previous admission, EMS record, old EKG, old radiological studies, urgent care reports/EKG's, long term records)? Report findings @ -No old charts were reviewed Differential Diagnosis (chest pain, altered mental status, abdominal pain women, abdominal pain men, vaginal bleeding, weakness, fever, dyspnea, syncope, headache, dizziness, GI bleed, back pain, seizure, CVA, palpatations, mental health, musculoskeletal)? @ -Differential Musculoskeletal Muscular strain, contusion, ligament sprain, fracture, arthritis, septic arthritis, bursitis, cellulitis, muscle spasm, nerve compression, DVT, arterial occlusion, herpes zoster, electrolyte abnormality, tumor.... This is not meant to be in all inclusive list EKG interpreted by me (3pts min.). @None X-rays interpreted by me (1pt min.). @ -xray of the right foot reveals a nondisplaced oblique intra-articular fracture of the medial base of the first proximal phalanx. CT interpreted by me (1pt min.). @ -None done U/S interpreted by me (1pt. min.). @ -None done What testing was considered but not performed or refused? (CT, X-rays, U/S, labs)? Why? @ -CT imaging, labs and EKG were considered but deferred. Multiple questions at bedside reveals that patient did not have any symptoms concerning for a syncopal episode or feeling weak or fatigued at the time of the event. Patient family in agreement with deferring lab work at this time What meds were considered but not given or refused? Why? @ -None Did you discuss the management of the patient with other professionals (professionals i.e. , PA, AUTO APPRAISER, lab, RT, psych nurse, social media sr strategy manager, government clerk, teacher, president and chief commercial officer, lead case manager)? Give summary @ -No Was smoking cessation discussed for >3mins.? @ -No Was critical care preformed (if so, how long)? @ -No Were there social determinants of health that impacted care today? How? (Homelessness, low income, unemployed, alcoholism, drug addiction, transportation, low edu. Level, literacy, decrease access to med. care, nursing home, rehab)? @ -No Was there de-escalation of care discussed even if they declined (Discuss DNR or withdrawal of care, Hospice)? DNR status @ -No What co-morbidities impacted this encounter? (DM, HTN, Smoking, COPD, CAD, Cancer, CVA, ARF, Chemo, Hep., AIDS, mental health diagnosis, sleep apnea, morbid obesity)? @ -None Was patient admitted / discharged? Hospital course, mention meds given and route, prescriptions, significant lab abnormalities, going to OR and other pertinent info. @ -Discharged. 78-year-old male with a fall. Patient is resting comfortably no signs of acute distress. Patient is noted to have a abrasion over the left knee however patient is denying knee pain or pain with range of motion. Patient has pain to the right foot with palpation, there are no neurological deficits. X-ray reveals a nondisplaced oblique intra-articular fracture of the medial base of the first proximal phalanx. Patient is provided with Motrin in the emergency department. Lana tape applied and walking shoe provided to the patient and he is instructed to use this for the next 4 to 6 weeks to aid in wound healing and elevate his foot while not ambulating. All questions answered at bedside and strict return parameters douglas with the patient the patient's family verbalized understanding. Recommend the patient continue to use walker for stability. Discussed with Dr. Soler Undiagnosed new problem with uncertain prognosis? @ -No Drug Therapy requiring intensive monitoring for toxicity (Heparin, Nitro, Insulin, Cardizem)? @ -No Were any procedures done? @ -No Diagnosis/symptom? @ -Toe fracture Acute, or Chronic, or Acute on Chronic? @ -Acute Uncomplicated (without systemic symptoms) or Complicated (systemic symptoms)? @ -Uncomplicated Side effects of treatment? @ -No Exacerbation, Progression, or Severe Exacerbation? @ -No Poses a threat to life or bodily function? How? (Chest pain, [place], [place], pneumonia, PE, COPD, DKA, ARF, appy, cholecystitis, CVA, Diverticulitis, Homicidal, Suicidal, threat to staff... and all critical care pts) @ -No Disposition Clinical Impression: Toe fracture, right Disposition: HOME SELF-CARE Condition: Good Instructions (If sedation given, give patient instructions): Toe Fracture (ED), Fall Prevention for Older Adults (ED) Additional Instructions: Return to the emergency department for any new or worsening symptoms. Recommend that you continue Tylenol Motrin at home for symptomatic relief. Continue to lana tape right great toe with second toe and use a walking shoe over the next 4 to 6 weeks to aid in resolution. Keep foot elevated while not ambulating Is patient prescribed a controlled substance at d/c from ED?: No Referrals: Carmina Haque MD [Primary Care Provider] - 1-2 days Time of Disposition: 12:59
[2024-02-27] MEDS: IBUPROFEN 600 MG TAB PO STA (12:05)
--- NOTE | 2024-02-27 12:36 | XR ---
EXAMINATION TYPE: XR foot complete RT DATE OF EXAM: 02/27/2024 COMPARISON: NONE HISTORY: 78-year-old male with pain after fall TECHNIQUE: 3 views FINDINGS: Diffuse osteopenia. Moderate degenerative change first MTP joint. There is an oblique, intr a-articular fracture at the medial base of the first proximal phalanx. No articular surface incongrui ty or fracture displacement. Vascular calcifications. IMPRESSION: 1. Nondisplaced oblique intra-articular fracture medial base of the first proximal phalanx. 2. Severe osteopenia limiting the overall evaluation. 3. Moderate first MTP joint OA. [facility], Workstation: [facility], 02/27/2024 12:34 PM
[2024-02-27 12:47] VITALS: TEMP 98.1
[2024-02-27 13:05] VITALS: BP 165/89; PULSE 80
== END 2024-02-27 13:14 | disposition home or self-care (01) ==
LOC: EC 11:31
CPT/HCPCS: 99284

== ENCOUNTER 2024-05-04 13:56 | Inpatient (IN) | payer MEDICARE ==
--- NOTE | 2024-05-04 14:39 | ED ---
General Adult HPI - General Chief complaint: Shortness of Breath Stated complaint: SOB Time Seen by Provider: 05/04/24 14:15 Source: patient, EMS, RN notes reviewed, old records reviewed Mode of arrival: EMS Limitations: no limitations - History of Present Illness Initial comments: This is a 78-year-old male who presents to the emergency department via EMS. EMS got a call because the visiting nurse stated that the patient's pulse ox was in the 70s. Patient was without complaints. When EMS checked the patient's pulse ox the patient was 96% and remained without complaints throughout his transportation to the hospital. When I interviewed the patient he denied being short of breath he denied chest pain difficulty breathing or fever chills or cou gh. Patient denied any abdominal pain. She denied any nausea vomiting. Patient states he feels like he is at his baseline. Patient is a little confused but son states this is normal for him - Related Data Home Medications Medication Instructions Recorded Confirmed Docusate Sodium [Dok] 100 mg PO BID 11/29/21 05/18/23 Tamsulosin HCl [Flomax] 0.4 mg PO DAILY 11/29/21 05/18/23 Levothyroxine Sodium [Synthroid] 25 mcg PO DAILY 03/23/22 05/18/23 ALPRAZolam [Xanax] 0.25 mg PO BID PRN 05/18/23 05/18/23 Ascorbic Acid [Vitamin C] 1,000 mg PO DAILY 05/18/23 05/18/23 Cholecalciferol [Vitamin D3 (25 50 mcg PO DAILY 05/18/23 05/18/23 Mcg = 1000 Iu)] Ferrous Sulfate [Iron] 325 mg PO DAILY 05/18/23 05/18/23 Multivitamins, Thera [Multivitamin 1 tab PO DAILY 05/18/23 05/18/23 (formulary)] Pantoprazole Sodium [Protonix] 40 mg PO DAILY 05/18/23 05/18/23 Rosuvastatin Calcium 5 mg PO DAILY 05/18/23 05/18/23 Thiamine [Vitamin B-1] 100 mg PO DAILY 05/18/23 05/18/23 carvediloL [Coreg] 6.25 mg PO BID 05/18/23 05/18/23 lisinopriL [Prinivil] 20 mg PO DAILY 05/18/23 05/18/23 Previous Rx's Medication Instructions Recorded Aspirin 81 mg PO DAILY tab 03/25/22 Allergies Allergy/AdvReac Type Severity Reaction Status Date / Time No Known Allergies Allergy Verified 05/04/24 14:11 Review of Systems ROS Statement: Those systems with pertinent positive or pertinent negative responses have been documented in the HPI. ROS Other: All systems not noted in ROS Statement are negative. Past Medical History Past Medical History: Hypertension, Syncope History of Any Multi-Drug Resistant Organisms: None Reported Past Surgical History: No Surgical Hx Reported Past Anesthesia/Blood Transfusion Reactions: No Reported Reaction Past Psychological History: No Psychological Hx Reported Smoking Status: Never smoker Past Alcohol Use History: None Reported Past Drug Use History: None Reported - Past Family History Father Family Medical History: No Reported History Additional Family Medical History / Comment(s): at age 46 Mother Additional Family Medical History / Comment(s): breast cancer. age 95 General Exam - General Exam Comments Initial Comments: GENERAL: Patient is well-developed and well-nourished. Patient is nontoxic and well- hydrated and is in no acute distress. ENT: Neck is soft and supple. No significant lymphadenopathy is noted. Oropharynx is clear. Moist mucous membranes. Neck has full range of motion without eliciting any pain. EYES: The sclera were anicteric and conjunctiva were pink and moist. Extraocular movements were intact and pupils were equal round and reactive to light. Eyelids were unremarkable. PULMONARY: Unlabored respirations. Good breath sounds bilaterally. No audible rales rhonchi or wheezing was noted. CARDIOVASCULAR: There is a regular rate and rhythm without any murmurs gallops or rubs. ABDOMEN: Soft and nontender with normal bowel sounds. SKIN: Skin is clear with no lesions or rashes and otherwise unremarkable. NEUROLOGIC: Patient is alert and oriented x 2. Cranial nerves II through XII are grossly intact. Motor and sensory are also intact. Normal speech, volume and content. Symmetrical smile. MUSCULOSKELETAL: Normal extremities with adequate strength and full range of motion. No lower extremity swelling or edema. No calf tenderness. LYMPHATICS: No significant lymphadenopathy is noted PSYCHIATRIC: Normal psychiatric evaluation. Limitations: no limitations Course Vital Signs 05/04/24 05/04/24 14:06 16:03 Temperature 98 F Pulse Rate 85 Respiratory 20 20 Rate Blood Pressure 97/53 O2 Sat by Pulse 96 95 Oximetry Medical Decision Making - Medical Decision Making EKG is interpreted by myself EKG shows sinus rhythm at 83 bpm MD interval 148 QRS of 78 QT interval 331 QTc is 371. Patient's EKG shows no ST segment elevation Was pt. sent in by a medical professional or institution (EMILIANA Cadet, HEALTH TECHNICAL WRITER, urgent care, hospital, or senior care...) When possible be specific @ -No Did you speak to anyone other than the patient for history (EMS, parent, family, police, friend...)? What history was obtained from this source @ -No Did you review nursing and triage notes (agree or disagree)? Why? @ -I reviewed and agree with nursing and triage notes Were old charts reviewed (outside hosp., previous admission, EMS record, old EKG, old radiological studies, urgent care reports/EKG's, senior care records)? Report findings @ -No old charts were reviewed Differential Diagnosis? @ -Differential Dyspnea: Coronary syndrome, arrhythmia, tamponade, asthma, COPD, pulmonary embolism, pneumonia, pneumothorax, pulmonary effusion, anaphylaxis, diabetic ketoacidosis, flailed chest, pulmonary contusion, diaphragmatic rupture, anemia, neuromuscular, this is not meant to be an all-inclusive list. EKG interpreted by me (3pts min.). @ -As above X-rays interpreted by me (1pt min.). @ -X-ray shows no acute CT interpreted by me (1pt min.). @ -None done U/S interpreted by me (1pt. min.). @ -None done What testing was considered but not performed or refused? (CT, X-rays, U/S, labs)? Why? @ -None What meds were considered but not given or refused? Why? @ -None Did you discuss the management of the patient with other professionals (professionals i.e. EMILIANA Cadet, HEALTH TECHNICAL WRITER, lab, RT, psych nurse, social sciences lecturer, mowing machine operator, teacher, appeals officer, cyanide case hardener)? Give summary @ -I spoke with Dr. Haque he agreed admit the patient. Was smoking cessation discussed for >3mins.? @ -No Was critical care preformed (if so, how long)? @ -35 minutes Were there social determinants of health that impacted care today? How? (Homelessness, low income, unemployed, alcoholism, drug addiction, transportation, low edu. Level, literacy, decrease access to med. care, long-term, rehab)? @ -No Was there de-escalation of care discussed even if they declined (Discuss DNR or withdrawal of care, Hospice)? DNR status @ -No What co-morbidities impacted this encounter? (DM, HTN, Smoking, COPD, CAD, Cancer, CVA, ARF, Chemo, Hep., AIDS, mental health diagnosis, sleep apnea, morbid obesity)? @ -None Was patient admitted / discharged? Hospital course, mention meds given and route, prescriptions, significant lab abnormalities, going to OR and other pertinent info. @ -Patient was asymptomatic throughout his ED course. Patient's creatinine came back at 3. Patient also had an elevated potassium at 6.2. I gave the patient insulin D50 sodium bicarb Lokelma calcium chloride and admitted the patient to Dr. Haque Undiagnosed new problem with uncertain prognosis? @ -No Drug Therapy requiring intensive monitoring for toxicity (Heparin, Nitro, Insulin, Cardizem)? @ -No Were any procedures done? @ -No Diagnosis/symptom? @ -Acute renal failure Acute, or Chronic, or Acute on Chronic? @ -Acute Uncomplicated (without systemic symptoms) or Complicated (systemic symptoms)? @ -Complicated Side effects of treatment? @ -No Exacerbation, Progression, or Severe Exacerbation? @ -No Poses a threat to life or bodily function? How? (Chest pain, [place], [place], pneumonia, PE, COPD, DKA, ARF, appy, cholecystitis, CVA, Diverticulitis, Homicidal, Suicidal, threat to staff... and all critical care pts) @ -Yes this can lead to electrolyte abnormalities and arrhythmias Diagnosis/symptom? @ -Hyperkalemia Acute, or Chronic, or Acute on Chronic? @ -Acute Uncomplicated (without systemic symptoms) or Complicated (systemic symptoms)? @ -Complicated Side effects of treatment? @ -None Exacerbation, Progression, or Severe Exacerbation] @ -No Poses a threat to life or bodily function? @ -Yes this can lead to an arrhythmia and - Lab Data Result diagrams: 05/04/24 16:01 05/04/24 16:01 Lab Results 05/04/24 05/04/24 05/04/24 Range/Units 15:41 16:01 16:01 WBC 9.3 (3.8-10.6) k/uL RBC 3.45 L (4.30-5.90) m/uL Hgb 11.4 L (13.0-17.5) gm/dL Hct 35.9 L (39.0-53.0) % MCV 104.2 H (80.0-100.0) fL MCH 33.1 (25.0-35.0) pg MCHC 31.7 (31.0-37.0) g/dL RDW 14.1 (11.5-15.5) % Plt Count 260 (150-450) k/uL MPV 7.5 Neutrophils % 53 % Lymphocytes % 38 % Monocytes % 4 % Eosinophils % 3 % Basophils % 0 % Neutrophils # 4.9 (1.3-7.7) k/uL Lymphocytes # 3.5 (1.0-4.8) k/uL Monocytes # 0.4 (0-1.0) k/uL Eosinophils # 0.3 (0-0.7) k/uL Basophils # 0.0 (0-0.2) k/uL Macrocytosis Slight Sodium 137 (137-145) mmol/L Potassium 6.2 H* (3.5-5.1) mmol/L Chloride 113 H (98-107) mmol/L Carbon Dioxide 12 L (22-30) mmol/L Anion Gap 12 mmol/L BUN 75 H (9-20) mg/dL Creatinine 3.11 H (0.66-1.25) mg/dL Est GFR (CKD-EPI)AfAm 21 (>60 ml/min/1.73 sqM) Est GFR (CKD-EPI)NonAf 18 (>60 ml/min/1.73 sqM) Glucose 95 (74-99) mg/dL Plasma Lactic Acid Simon (0.7-2.0) mmol/L Calcium 9.7 (8.4-10.2) mg/dL Magnesium 2.5 H (1.6-2.3) mg/dL Total Bilirubin 1.0 (0.2-1.3) mg/dL AST 35 (17-59) U/L ALT 46 (4-49) U/L Alkaline Phosphatase 74 (38-126) U/L Total Protein 7.4 (6.3-8.2) g/dL Albumin 3.6 (3.5-5.0) g/dL Influenza Type A (PCR) Not Detected (Not Detectd) Influenza Type B (PCR) Not Detected (Not Detectd) RSV (PCR) Not Detected (Not Detectd) SARS-CoV-2 (PCR) Not Detected (Not Detectd) 05/04/24 Range/Units 16:01 WBC (3.8-10.6) k/uL RBC (4.30-5.90) m/uL Hgb (13.0-17.5) gm/dL Hct (39.0-53.0) % MCV (80.0-100.0) fL MCH (25.0-35.0) pg MCHC (31.0-37.0) g/dL RDW (11.5-15.5) % Plt Count (150-450) k/uL MPV Neutrophils % % Lymphocytes % % Monocytes % % Eosinophils % % Basophils % % Neutrophils # (1.3-7.7) k/uL Lymphocytes # (1.0-4.8) k/uL Monocytes # (0-1.0) k/uL Eosinophils # (0-0.7) k/uL Basophils # (0-0.2) k/uL Macrocytosis Sodium (137-145) mmol/L Potassium (3.5-5.1) mmol/L Chloride (98-107) mmol/L Carbon Dioxide (22-30) mmol/L Anion Gap mmol/L BUN (9-20) mg/dL Creatinine (0.66-1.25) mg/dL Est GFR (CKD-EPI)AfAm (>60 ml/min/1.73 sqM) Est GFR (CKD-EPI)NonAf (>60 ml/min/1.73 sqM) Glucose (74-99) mg/dL Plasma Lactic Acid Simon 0.8 (0.7-2.0) mmol/L Calcium (8.4-10.2) mg/dL Magnesium (1.6-2.3) mg/dL Total Bilirubin (0.2-1.3) mg/dL AST (17-59) U/L ALT (4-49) U/L Alkaline Phosphatase (38-126) U/L Total Protein (6.3-8.2) g/dL Albumin (3.5-5.0) g/dL Influenza Type A (PCR) (Not Detectd) Influenza Type B (PCR) (Not Detectd) RSV (PCR) (Not Detectd) SARS-CoV-2 (PCR) (Not Detectd) Disposition Clinical Impression: Hyperkalemia, Acute renal failure Disposition: ADMITTED IP TO THIS HOSP Referrals: Carmina Haque MD [Primary Care Provider] - 1-2 days Time of Disposition: 17:49
--- NOTE | 2024-05-04 15:12 | XR ---
2 view chest. HISTORY: Chest pain COMPARISON: 03/23/2022 TECHNIQUE: PA and lateral views the chest were obtained. FINDINGS: The lungs are clear of consolidative, interstitial or masslike opacity. There is no pleural effusion, pleural thickening or pneumothorax. The heart, pulmonary vasculature, mediastinum and liset are within normal limits. A loop recorder is i dentified. The osseous structures and soft tissues of the thorax are intact. IMPRESSION: No acute cardiopulmonary disease. No interval change.. [facility], , 05/04/2024 3:10 PM
[2024-05-04 16:20] LABS: Basophils % (A) 0 %; Eosinophils # (A) 0.3 k/uL (0-0.7); Eosinophils % (A) 3 %; HCT 35.9 % (39.0-53.0); HGB 11.4 gm/dL (13.0-17.5); Lymphocytes # (A) 3.5 k/uL (1.0-4.8); Lymphocytes % (A) 38 %; MCH 33.1 pg (25.0-35.0); MCHC 31.7 g/dL (31.0-37.0); MCV 104.2 fL (80.0-100.0); Macrocytosis Slight; Mean Platelet Volume 7.5; Monocytes # (A) 0.4 k/uL (0-1.0); Monocytes % (A) 4 %; Neutrophils # (A) 4.9 k/uL (1.3-7.7); Neutrophils % (A) 53 %; Platelet Count 260 k/uL (150-450); RBC 3.45 m/uL (4.30-5.90); RDW 14.1 % (11.5-15.5); WBC 9.3 k/uL (3.8-10.6)
[2024-05-04 16:48] LABS: ALT 46 U/L (4-49); AST 35 U/L (17-59); African American GFR (CKD) 21 (>60 ml/min/1.73 sqM); Albumin 3.6 g/dL (3.5-5.0); Alkaline Phosphatase 74 U/L (38-126); Anion Gap 12 mmol/L; Blood Urea Nitrogen 75 mg/dL (9-20); Calcium 9.7 mg/dL (8.4-10.2); Carbon Dioxide 12 mmol/L (22-30); Chloride 113 mmol/L (98-107); Glucose 95 mg/dL (74-99); Magnesium 2.5 mg/dL (1.6-2.3); Non-African American GFR(CKD) 18 (>60 ml/min/1.73 sqM); Sodium 137 mmol/L (137-145); Total Protein 7.4 g/dL (6.3-8.2)
[2024-05-04 17:07] LABS: Potassium 6.2 mmol/L (3.5-5.1)
[2024-05-04] MEDS: CALCIUM CHLORIDE 100 MG/ML 10 ML SYRINGE IVP STA (18:26)
[2024-05-04] MEDS: SODIUM CHLORIDE 0.9% 1,000 ML IV ONE ×2 (18:26→18:27)
[2024-05-04] MEDS: SODIUM BICARB 8.4% 50 ML SYR (1 MEQ/ML) IV STA (18:26)
[2024-05-04] MEDS: DEXTROSE 50% SYRINGE 50 ML IVP STA (18:27)
[2024-05-04] MEDS: SODIUM ZIRCONIUM CYCLOSILICATE 10 GM PACKET PO ONE (18:27)
[2024-05-04] MEDS: INSULIN REGULAR 100 UNIT/ML VIAL (IV) IV ONE (18:41)
[2024-05-05] MEDS: MULTIVITAMINS, THERA 1 EACH TAB PO SCH (09:42)
[2024-05-05] MEDS: CHOLECALCIFEROL 25 MCG (1000 IU) TABLET PO SCH (09:43)
[2024-05-05] MEDS: FERROUS SULFATE 325 MG TAB PO SCH (09:43)
[2024-05-05] MEDS: TAMSULOSIN 0.4 MG CAP.ER.24H PO SCH (09:43)
[2024-05-05] MEDS: DOCUSATE 100 MG CAP PO SCH (09:43)
[2024-05-05] MEDS: ASPIRIN 81 MG PO SCH (09:43)
[2024-05-05] MEDS: METOPROLOL SUCCINATE (ER) 25 MG TAB.ER.24H PO SCH (09:43)
[2024-05-05] MEDS: MEGESTROL 400 MG/10 ML CUP PO SCH (09:43)
[2024-05-05] MEDS: PANTOPRAZOLE 40 MG TABLET PO SCH (09:43)
[2024-05-05] MEDS: LEVOTHYROXINE 25 MCG TAB PO SCH (09:51)
--- NOTE | 2024-05-05 10:25 | P.HPIM ---
History of Present Illness H&P Date: 05/05/24 Prince Sanderson is a 78-year-old male patient who presented to the ER with concerns of low pulse ox per nursing records patient had a low pulse ox of 70% with visiting nurses upon arrival patient's pulse ox was 96%. Patient denies chest pain or shortness of breath. Patient denies nausea vomiting or diarrhea. Patient denied any urinary burning or frequency. Lab work was completed showing potassium of 6.2 and creatinine 3.11 bun 75. Patient is on lisinopril and hydrochlorothiazide these medications have been held. Patient also started on IV fluid and given potassium lowering cocktail repeat potassium 5.5. Patient has a past medical history of hypertension and syncope. Patient reports he has had some nausea. Denies vomiting or diarrhea. Influenza RSV and COVID-19 negative. At this time patient will be admitted. Nephrology services consulted will order amylase lipase and abdominal ultrasound. Review of Systems Please refer to HPI otherwise unremarkable Past Medical History Past Medical History: Hypertension, Syncope History of Any Multi-Drug Resistant Organisms: None Reported Past Surgical History: No Surgical Hx Reported Past Anesthesia/Blood Transfusion Reactions: No Reported Reaction Past Psychological History: No Psychological Hx Reported Smoking Status: Never smoker Past Alcohol Use History: None Reported Past Drug Use History: None Reported - Past Family History Father Family Medical History: No Reported History Additional Family Medical History / Comment(s): at age 46 Mother Additional Family Medical History / Comment(s): breast cancer. age 95 Medications and Allergies Home Medications Medication Instructions Recorded Confirmed Type Docusate Sodium [Dok] 100 mg PO BID 11/29/21 05/04/24 History Tamsulosin HCl [Flomax] 0.4 mg PO DAILY 11/29/21 05/04/24 History Levothyroxine Sodium [Synthroid] 25 mcg PO DAILY 03/23/22 05/04/24 History Aspirin 81 mg PO DAILY tab 03/25/22 05/04/24 Rx Cholecalciferol [Vitamin D3 (25 50 mcg PO DAILY 05/18/23 05/04/24 History Mcg = 1000 Iu)] Ferrous Sulfate [Iron] 325 mg PO DAILY 05/18/23 05/04/24 History Multivitamins, Thera [Multivitamin 1 tab PO DAILY 05/18/23 05/04/24 History (formulary)] Pantoprazole Sodium [Protonix] 40 mg PO DAILY 05/18/23 05/04/24 History Rosuvastatin Calcium 5 mg PO HS 05/18/23 05/04/24 History lisinopriL [Prinivil] 10 mg PO DAILY 05/18/23 05/04/24 History Megestrol Acetate 400 mg PO DAILY 05/04/24 05/04/24 History Metoprolol Succinate [Metoprolol 12.5 mg PO DAILY 05/04/24 05/04/24 History Succinate ER] hydroCHLOROthiazide [Hydrodiuril] 12.5 mg PO DAILY 05/04/24 05/04/24 History Allergies Allergy/AdvReac Type Severity Reaction Status Date / Time No Known Allergies Allergy Verified 05/04/24 19:11 Physical Exam Vitals: Vital Signs Temp Pulse Resp BP Pulse Ox 05/05/24 09:40 67 15 92/65 100 05/05/24 08:21 82 17 111/58 100 05/05/24 06:43 98.2 F 80 16 104/59 100 05/05/24 04:50 80 16 108/66 100 05/05/24 03:24 81 14 90/76 100 05/05/24 01:57 85 14 99/64 100 05/05/24 00:58 85 16 97/66 100 05/04/24 21:35 99 16 109/59 100 05/04/24 19:44 94 16 142/69 100 05/04/24 18:00 73 17 95/60 98 05/04/24 17:49 89 20 110/64 99 05/04/24 16:03 20 95 05/04/24 14:06 98 F 85 20 97/53 96 Head normocephalic Neck supple Lungs clear to auscultation bilaterally no wheezing or crackles Heart regular rate and rhythm S1-S2, no rub or gallop Abdomen is soft nontender nondistended positive bowel sounds no hepatosplenomegaly Extremities no edema Neuro alert and orientated to 3 Results CBC & Chem 7: 05/04/24 16:01 05/04/24 19:53 Labs: Abnormal Lab Results - Last 24 Hours (Table) 05/04/24 05/04/24 05/04/24 Range/Units 16:01 16:01 19:53 RBC 3.45 L (4.30-5.90) m/uL Hgb 11.4 L (13.0-17.5) gm/dL Hct 35.9 L (39.0-53.0) % MCV 104.2 H (80.0-100.0) fL Potassium 6.2 H* 5.5 H (3.5-5.1) mmol/L Chloride 113 H (98-107) mmol/L Carbon Dioxide 12 L (22-30) mmol/L BUN 75 H (9-20) mg/dL Creatinine 3.11 H (0.66-1.25) mg/dL Magnesium 2.5 H (1.6-2.3) mg/dL Assessment and Plan Assessment: 1. Acute kidney injury with hyperkalemia. Patient's hydrochlorothiazide and lisinopril held. Nephrology services consulted 2. Episodes of nausea. Will order amylase lipase and abdominal ultrasound 3. History of syncopal episodes 4. History of essential hypertension 5. History of hypothyroidism 6. History of hyperlipidemia 7. History of BPH DVT prophylaxis heparin. GI prophylax Protonix Nephrology services consulted Patient did receive potassium lowering cocktail in ER repeat potassium 5.5 Continue gentle hydration Repeat labs ordered Time with Patient: Greater than 30 (Greater than 60% of the total time spent in counseling and coordination of care)
[2024-05-05] MEDS: SODIUM CHLORIDE 0.9% 1,000 ML IV SCH (11:28)
--- NOTE | 2024-05-05 12:04 | US ---
EXAMINATION TYPE: US kidneys/renal and bladder DATE OF EXAM: 05/05/2024 COMPARISON: NONE CLINICAL INDICATION: Male, 78 years old with history of SHILOH; TECHNIQUE: Grayscale imaging of the bilateral kidneys and urinary bladder: FINDINGS: EXAM MEASUREMENTS: Right Kidney: 10.0 x 5.0 x 5.2 cm Left Kidney: 9.8 x 5.0 x 5.0 cm Right Kidney: No hydronephrosis or masses seen Left Kidney: No hydronephrosis or masses seen Bladder: Not fully distended; echogenic focus with posterior shadowing noted within the bladder measu ring 0.6cm Bilateral Jets seen: no There is no evidence for hydronephrosis at this point in time. No nephrolithiasis is seen. No katiana s are identified. The urinary bladder is anechoic. IMPRESSION: Urinary bladder calculus difficult to exclude. [facility], , 05/05/2024 12:02 PM
[2024-05-05] MEDS: DEXTROSE 5% IN WATER 1,000 ML with SODIUM BICARB (1 MEQ/ML) 150 ML IV SCH (13:01)
[2024-05-05 13:07] LABS: Basophils % (A) 1 %; Eosinophils # (A) 0.3 k/uL (0-0.7); Eosinophils % (A) 4 %; HCT 38.4 % (39.0-53.0); HGB 12.1 gm/dL (13.0-17.5); Hypochromasia Slight; Lymphocytes # (A) 3.2 k/uL (1.0-4.8); Lymphocytes % (A) 38 %; MCH 33.6 pg (25.0-35.0); MCHC 31.4 g/dL (31.0-37.0); MCV 106.8 fL (80.0-100.0); Macrocytosis Moderate; Mean Platelet Volume 7.5; Monocytes # (A) 0.5 k/uL (0-1.0); Monocytes % (A) 5 %; Neutrophils # (A) 4.2 k/uL (1.3-7.7); Neutrophils % (A) 50 %; Platelet Count 238 k/uL (150-450); RDW 14.1 % (11.5-15.5); WBC 8.4 k/uL (3.8-10.6)
[2024-05-05 13:26] LABS: ALT 38 U/L (4-49); AST 34 U/L (17-59); African American GFR (CKD) 48 (>60 ml/min/1.73 sqM); Albumin 3.5 g/dL (3.5-5.0); Alkaline Phosphatase 73 U/L (38-126); Amylase 92 U/L (30-110); Anion Gap 10 mmol/L; Blood Urea Nitrogen 61 mg/dL (9-20); Calcium 10.1 mg/dL (8.4-10.2); Carbon Dioxide 16 mmol/L (22-30); Chloride 113 mmol/L (98-107); Glucose 96 mg/dL (74-99); Lipase 305 U/L (23-300); Non-African American GFR(CKD) 41 (>60 ml/min/1.73 sqM); Potassium 5.8 mmol/L (3.5-5.1); Sodium 139 mmol/L (137-145); Total Bilirubin 1.2 mg/dL (0.2-1.3); Total Protein 7.4 g/dL (6.3-8.2)
--- NOTE | 2024-05-05 13:36 | P.NPCON ---
History of Present Illness - Reason for Consult acute renal failure - History of Present Illness patient is a 78-year-old male with history of hypertension who was admitted to the hospital due to hypoxia noted at home by visiting nurse. O2 saturation was apparently 70% but noted to be 96% in the ER. No complaints of shortness of breath. Labs showed serum potassium 6.2 and serum creatinine 3.1. Patient denies any previous history of kidney diseases. Lisinopril and hydrochlorothiazide noted on home meds which are currently on hold. Patient has been started on IV fluids. Blood pressure was low with systolic in the 90s. Past Medical History Past Medical History: Hypertension, Syncope History of Any Multi-Drug Resistant Organisms: None Reported Past Surgical History: No Surgical Hx Reported Past Anesthesia/Blood Transfusion Reactions: No Reported Reaction Past Psychological History: No Psychological Hx Reported Smoking Status: Never smoker Past Alcohol Use History: None Reported Past Drug Use History: None Reported - Past Family History Father Family Medical History: No Reported History Additional Family Medical History / Comment(s): at age 46 Mother Additional Family Medical History / Comment(s): breast cancer. age 95 Medications and Allergies Home Medications Medication Instructions Recorded Confirmed Type Docusate Sodium [Dok] 100 mg PO BID 11/29/21 05/04/24 History Tamsulosin HCl [Flomax] 0.4 mg PO DAILY 11/29/21 05/04/24 History Levothyroxine Sodium [Synthroid] 25 mcg PO DAILY 03/23/22 05/04/24 History Aspirin 81 mg PO DAILY tab 03/25/22 05/04/24 Rx Cholecalciferol [Vitamin D3 (25 50 mcg PO DAILY 05/18/23 05/04/24 History Mcg = 1000 Iu)] Ferrous Sulfate [Iron] 325 mg PO DAILY 05/18/23 05/04/24 History Multivitamins, Thera [Multivitamin 1 tab PO DAILY 05/18/23 05/04/24 History (formulary)] Pantoprazole Sodium [Protonix] 40 mg PO DAILY 05/18/23 05/04/24 History Rosuvastatin Calcium 5 mg PO HS 05/18/23 05/04/24 History lisinopriL [Prinivil] 10 mg PO DAILY 05/18/23 05/04/24 History Megestrol Acetate 400 mg PO DAILY 05/04/24 05/04/24 History Metoprolol Succinate [Metoprolol 12.5 mg PO DAILY 05/04/24 05/04/24 History Succinate ER] hydroCHLOROthiazide [Hydrodiuril] 12.5 mg PO DAILY 05/04/24 05/04/24 History Allergies Allergy/AdvReac Type Severity Reaction Status Date / Time No Known Allergies Allergy Verified 05/04/24 19:11 Physical Exam Vitals: Vital Signs Temp Pulse Resp BP Pulse Ox 05/05/24 13:00 76 18 118/57 99 05/05/24 09:40 67 15 92/65 100 05/05/24 08:21 82 17 111/58 100 05/05/24 06:43 98.2 F 80 16 104/59 100 05/05/24 04:50 80 16 108/66 100 05/05/24 03:24 81 14 90/76 100 05/05/24 01:57 85 14 99/64 100 05/05/24 00:58 85 16 97/66 100 05/04/24 21:35 99 16 109/59 100 05/04/24 19:44 94 16 142/69 100 05/04/24 18:00 73 17 95/60 98 05/04/24 17:49 89 20 110/64 99 05/04/24 16:03 20 95 05/04/24 14:06 98 F 85 20 97/53 96 patient is awake, comfortable, no acute distress. Examination of the heart S1 and S2 Examination of the lungs bilateral breath sounds are heard Abdomen is soft nontender Examination of lower extremities shows no significant edema [employer] exam grossly intact Results - Lab Results Most recent lab results Calcium 10.1 mg/dL (8.4-10.2) 05/05/24 12:35 Magnesium 2.5 mg/dL (1.6-2.3) H 05/04/24 16:01 05/05/24 12:35 05/05/24 12:35 Assessment and Plan Assessment: 1. Acute kidney injury, ATN, nonoliguric associated with hypotension in the setting of use of CHAITANYA inhibitor's. Currently improving. Lisinopril and diuretics on hold and patient is maintained on IV fluids. Ultrasound shows no evidence of obstructive uropathy. 2. Non-gap metabolic acidosis secondary to acute kidney injury 3. Hyperkalemia associated with acute kidney injury and use of CHAITANYA inhibitor's, improved 4. Hypertension with blood pressure currently low Plan: change IV fluids to IV bicarb. IV Lasix 1 Repeat labs in a.m. Continue to hold CHAITANYA inhibitor's and diuretics Thank you for the consultation. We will continue to follow the patient with you during his hospitalization.
[2024-05-05] MEDS: HEPARIN SODIUM,PORCINE 5,000 UNIT/ML 1 ML VIAL SQ SCH (20:15)
[2024-05-05] MEDS: ATORVASTATIN 10 MG TAB PO SCH (20:15)
--- NOTE | 2024-05-06 10:39 | P.PN ---
Subjective patient is seen for follow-up for acute kidney injury. No significant complaints today. Renal function has improved with serum creatinine down to 1.6 yesterday. Labs are pending from today. Maintained on bicarb drip. Objective - Vital Signs Vital signs: Vital Signs Temp 97.9 F 05/06/24 09:03 Pulse 81 05/06/24 09:07 Resp 18 05/06/24 09:07 BP 128/77 05/06/24 09:03 Pulse Ox 100 05/06/24 09:03 FiO2 Intake & Output 05/05/24 05/06/24 05/06/24 18:59 06:59 18:59 Intake Total 120 Output Total 750 Balance 120 -750 Weight 90.718 kg Intake: Oral 120 Output: Urine 750 Other: Voiding Method Urinal External Catheter External Catheter - Exam patient is awake, comfortable, no acute distress. Examination of the heart S1 and S2 Examination of the lungs bilateral breath sounds are heard Abdomen is soft nontender Examination of lower extremities shows no significant edema LE[employer] exam grossly intact - Labs CBC & Chem 7: 05/05/24 12:35 05/05/24 12:35 Labs: Abnormal Lab Results - Last 24 Hours (Table) 05/05/24 05/05/24 Range/Units 12:35 12:35 RBC 3.60 L (4.30-5.90) m/uL Hgb 12.1 L (13.0-17.5) gm/dL Hct 38.4 L (39.0-53.0) % MCV 106.8 H (80.0-100.0) fL Potassium 5.8 H (3.5-5.1) mmol/L Chloride 113 H (98-107) mmol/L Carbon Dioxide 16 L (22-30) mmol/L BUN 61 H (9-20) mg/dL Creatinine 1.60 H (0.66-1.25) mg/dL Lipase 305 H (23-300) U/L Assessment and Plan Assessment: 1. Acute kidney injury, ATN, nonoliguric associated with hypotension in the setting of use of CHAITANYA inhibitor's. Currently improving. Lisinopril and diuretics on hold and patient is maintained on IV fluids. Ultrasound shows no evidence of obstructive uropathy. 2. Non-gap metabolic acidosis secondary to acute kidney injury 3. Hyperkalemia associated with acute kidney injury and use of CHAITANYA inhibitor's, improved 4. Hypertension with blood pressure currently low Plan: check labs today Adjust IV fluids based on labs from today. Continue off of CHAITANYA inhibitor's.
[2024-05-06 11:05] LABS: African American GFR (CKD) 70 (>60 ml/min/1.73 sqM); Anion Gap 7 mmol/L; Blood Urea Nitrogen 46 mg/dL (9-20); Calcium 9.5 mg/dL (8.4-10.2); Carbon Dioxide 26 mmol/L (22-30); Chloride 106 mmol/L (98-107); Glucose 97 mg/dL (74-99); Non-African American GFR(CKD) 61 (>60 ml/min/1.73 sqM); Sodium 139 mmol/L (137-145)
--- NOTE | 2024-05-06 11:17 | P.PN ---
Subjective Progress Note Date: 05/06/24 Prince Sanderson is a 78-year-old male patient who presented to the ER with concerns of low pulse ox per nursing records patient had a low pulse ox of 70% with visiting nurses upon arrival patient's pulse ox was 96%. Patient denies chest pain or shortness of breath. Patient denies nausea vomiting or diarrhea. Patient denied any urinary burning or frequency. Lab work was completed showing potassium of 6.2 and creatinine 3.11 bun 75. Patient is on lisinopril and hydrochlorothiazide these medications have been held. Patient also started on IV fluid and given potassium lowering cocktail repeat potassium 5.5. Patient has a past medical history of hypertension and syncope. Patient reports he has had some nausea. Denies vomiting or diarrhea. Influenza RSV and COVID-19 negative. At this time patient will be admitted. Nephrology services consulted will order amylase lipase and abdominal ultrasound. On 05/06/2024 patient was seen and examined on the medical floor he is alert and oriented x 3 in no apparent distress , he is complaining of abdominal discomfort and some nausea otherwise he denies any complaints there is no fever or chills no headache or dizziness, no chest pain no shortness of breath no cough, no burning with urination no frequency or urgency and no hematuria. Potassium is down to 5.0 BUN 46 creatinine 1.16 which is significant improvement his creatinine was 3.11 on presentation Objective - Vital Signs Vital signs: Vital Signs Temp 97.9 F 05/06/24 09:03 Pulse 81 05/06/24 09:07 Resp 18 05/06/24 09:07 BP 128/77 05/06/24 09:03 Pulse Ox 100 05/06/24 09:03 FiO2 Intake & Output 05/05/24 05/06/24 05/06/24 18:59 06:59 18:59 Intake Total 120 Output Total 750 Balance 120 -750 Weight 90.718 kg Intake: Oral 120 Output: Urine 750 Other: Voiding Method Urinal External Catheter External Catheter - Exam Head normocephalic Neck supple Lungs clear to auscultation bilaterally no wheezing or crackles Heart regular rate and rhythm S1-S2, no rub or gallop Abdomen is soft nontender nondistended positive bowel sounds no hepatosplenomegaly Extremities no edema Neuro alert and orientated to 3 - Labs CBC & Chem 7: 05/05/24 12:35 05/06/24 10:20 Labs: Abnormal Lab Results - Last 24 Hours (Table) 05/05/24 05/05/24 Range/Units 12:35 12:35 RBC 3.60 L (4.30-5.90) m/uL Hgb 12.1 L (13.0-17.5) gm/dL Hct 38.4 L (39.0-53.0) % MCV 106.8 H (80.0-100.0) fL Potassium 5.8 H (3.5-5.1) mmol/L Chloride 113 H (98-107) mmol/L Carbon Dioxide 16 L (22-30) mmol/L BUN 61 H (9-20) mg/dL Creatinine 1.60 H (0.66-1.25) mg/dL Lipase 305 H (23-300) U/L Assessment and Plan Assessment: 1. Acute kidney injury with hyperkalemia. Patient's hydrochlorothiazide and lisinopril held. Nephrology services consulted 2. Episodes of nausea. Will order amylase lipase and abdominal ultrasound 3. History of syncopal episodes 4. History of essential hypertension 5. History of hypothyroidism 6. History of hyperlipidemia 7. History of BPH DVT prophylaxis heparin. GI prophylax Protonix Nephrology services consulted Patient did receive potassium lowering cocktail in ER repeat potassium 5.5 Continue gentle hydration Repeat labs ordered
[2024-05-07 01:41] LABS: Appearance,Urine Clear (Clear); Bacteria,Urine Occasional /hpf; Bilirubin,Urine Negative (Negative); Blood,Urine Negative (Negative); Color,Urine Yellow; Glucose,Urine (UA) Negative (Negative); Ketones,Urine Negative (Negative); Leukocyte Esterase,Urine Small (Negative); Mucus,Urine Rare /hpf; Nitrite,Urine Negative (Negative); PH, Urine 8.5 (5.0-8.0); Protein,Urine Negative (Negative); RBC,Urine 2 /hpf (0-5); Specific Gravity,Urine 1.023 (1.001-1.035); Squamous Epithelial Cell,Urine 1 /hpf (0-4); Triple Phosphate Crystal,Urine Few /hpf; WBC,Urine 4 /hpf (0-5)
[2024-05-07 07:40] LABS: Basophils % (A) 0 %; Eosinophils # (A) 0.2 k/uL (0-0.7); Eosinophils % (A) 3 %; HCT 37.9 % (39.0-53.0); HGB 11.9 gm/dL (13.0-17.5); Lymphocytes # (A) 3.5 k/uL (1.0-4.8); Lymphocytes % (A) 49 %; MCH 33.3 pg (25.0-35.0); MCHC 31.5 g/dL (31.0-37.0); MCV 105.5 fL (80.0-100.0); Macrocytosis Moderate; Mean Platelet Volume 7.6; Monocytes # (A) 0.5 k/uL (0-1.0); Monocytes % (A) 6 %; Neutrophils # (A) 2.7 k/uL (1.3-7.7); Neutrophils % (A) 38 %; Platelet Count 230 k/uL (150-450); RBC 3.59 m/uL (4.30-5.90); WBC 7.1 k/uL (3.8-10.6)
[2024-05-07 07:55] LABS: ALT 39 U/L (4-49); AST 42 U/L (17-59); African American GFR (CKD) 82 (>60 ml/min/1.73 sqM); Albumin 3.2 g/dL (3.5-5.0); Alkaline Phosphatase 69 U/L (38-126); Anion Gap 6 mmol/L; Blood Urea Nitrogen 34 mg/dL (9-20); Carbon Dioxide 25 mmol/L (22-30); Chloride 105 mmol/L (98-107); Glucose 119 mg/dL (74-99); Non-African American GFR(CKD) 71 (>60 ml/min/1.73 sqM); Potassium 4.6 mmol/L (3.5-5.1); Sodium 136 mmol/L (137-145); Total Bilirubin 0.9 mg/dL (0.2-1.3)
--- NOTE | 2024-05-07 11:16 | P.PN ---
Subjective patient is seen for follow-up for acute kidney injury. No significant complaints today. Renal function has improved with serum creatinine down to 1.0 today. Maintained on bicarb drip. Objective - Vital Signs Vital signs: Vital Signs Temp 97.4 F L 05/07/24 08:00 Pulse 92 05/07/24 09:30 Resp 18 05/07/24 09:30 BP 132/76 05/07/24 08:00 Pulse Ox 100 05/07/24 08:00 FiO2 Intake & Output 05/06/24 05/07/24 05/07/24 18:59 06:59 18:59 Intake Total 360 120 Output Total 500 200 Balance -140 -200 120 Weight 86 kg Intake: Oral 360 120 Output: Urine 500 200 Other: Voiding Method External Catheter External Catheter External Catheter - Exam patient is awake, comfortable, no acute distress. Examination of the heart S1 and S2 Examination of the lungs bilateral breath sounds are heard Abdomen is soft nontender Examination of lower extremities shows no significant edema [employer] exam grossly intact - Labs CBC & Chem 7: 05/07/24 07:25 05/07/24 07:25 Labs: Abnormal Lab Results - Last 24 Hours (Table) 05/07/24 05/07/24 05/07/24 Range/Units 01:21 07:25 07:25 RBC 3.59 L (4.30-5.90) m/uL Hgb 11.9 L (13.0-17.5) gm/dL Hct 37.9 L (39.0-53.0) % MCV 105.5 H (80.0-100.0) fL Sodium 136 L (137-145) mmol/L BUN 34 H (9-20) mg/dL Glucose 119 H (74-99) mg/dL Albumin 3.2 L (3.5-5.0) g/dL Urine pH 8.5 H (5.0-8.0) Ur Leukocyte Esterase Small H (Negative) Triple Phos Crystals Few H (None) /hpf Urine Bacteria Occasional H (None) /hpf Urine Mucus Rare H (None) /hpf Assessment and Plan Assessment: 1. Acute kidney injury, ATN, nonoliguric associated with hypotension in the setting of use of CHAITANYA inhibitor's. Currently improving. Lisinopril and diuretics on hold and patient is maintained on IV fluids. Ultrasound shows no evidence of obstructive uropathy. 2. Non-gap metabolic acidosis secondary to acute kidney injury 3. Hyperkalemia associated with acute kidney injury and use of CHAITANYA inhibitor's, improved 4. Hypertension with blood pressure currently low Plan: DC bicarb drip. Stable for discharge from nephrology standpoint. May use low-dose CHAITANYA inhibitor's if blood pressure is elevated. Currently blood pressure is not high. Repeat labs as outpatient in 3-4 days. Continue to hold diuretics for now.
--- NOTE | 2024-05-07 17:11 | P.PN ---
Subjective Progress Note Date: 05/07/24 Prince Sanderson is a 78-year-old male patient who presented to the ER with concerns of low pulse ox per nursing records patient had a low pulse ox of 70% with visiting nurses upon arrival patient's pulse ox was 96%. Patient denies chest pain or shortness of breath. Patient denies nausea vomiting or diarrhea. Patient denied any urinary burning or frequency. Lab work was completed showing potassium of 6.2 and creatinine 3.11 bun 75. Patient is on lisinopril and hydrochlorothiazide these medications have been held. Patient also started on IV fluid and given potassium lowering cocktail repeat potassium 5.5. Patient has a past medical history of hypertension and syncope. Patient reports he has had some nausea. Denies vomiting or diarrhea. Influenza RSV and COVID-19 negative. At this time patient will be admitted. Nephrology services consulted will order amylase lipase and abdominal ultrasound. On 05/06/2024 patient was seen and examined on the medical floor he is alert and oriented x 3 in no apparent distress , he is complaining of abdominal discomfort and some nausea otherwise he denies any complaints there is no fever or chills no headache or dizziness, no chest pain no shortness of breath no cough, no burning with urination no frequency or urgency and no hematuria. Potassium is down to 5.0 BUN 46 creatinine 1.16 which is significant improvement his creatinine was 3.11 on presentation. On 05/07/2024 patient was seen and examined on the medical floor he is alert and oriented x 3 in no apparent distress he is complaining of generalized weakness and abdominal discomfort otherwise he denies any complaints there is no fever or chills no headache or dizziness no chest pain no shortness of breath no cough no nausea or vomiting no diarrhea and no urinary symptoms. At this time kidney function has improved significantly, physical therapy and Occupational Therapy were consulted to assess condition for discharge. Objective - Vital Signs Vital signs: Vital Signs Temp 98.0 F 05/07/24 11:51 Pulse 90 05/07/24 13:56 Resp 18 05/07/24 13:56 BP 138/80 05/07/24 11:51 Pulse Ox 100 05/07/24 11:51 FiO2 Intake & Output 05/06/24 05/07/24 05/07/24 18:59 06:59 18:59 Intake Total 360 120 Output Total 500 200 Balance -140 -200 120 Weight 86 kg Intake: Oral 360 120 Output: Urine 500 200 Other: Voiding Method External Catheter External Catheter External Catheter - Exam Head normocephalic Neck supple Lungs clear to auscultation bilaterally no wheezing or crackles Heart regular rate and rhythm S1-S2, no rub or gallop Abdomen is soft nontender nondistended positive bowel sounds no hepatosplenomeg chai Extremities no edema Neuro alert and orientated to 3 - Labs CBC & Chem 7: 05/07/24 07:25 05/07/24 07:25 Labs: Abnormal Lab Results - Last 24 Hours (Table) 05/07/24 05/07/24 05/07/24 Range/Units 01:21 07:25 07:25 RBC 3.59 L (4.30-5.90) m/uL Hgb 11.9 L (13.0-17.5) gm/dL Hct 37.9 L (39.0-53.0) % MCV 105.5 H (80.0-100.0) fL Sodium 136 L (137-145) mmol/L BUN 34 H (9-20) mg/dL Glucose 119 H (74-99) mg/dL Albumin 3.2 L (3.5-5.0) g/dL Urine pH 8.5 H (5.0-8.0) Ur Leukocyte Esterase Small H (Negative) Triple Phos Crystals Few H (None) /hpf Urine Bacteria Occasional H (None) /hpf Urine Mucus Rare H (None) /hpf Assessment and Plan Assessment: 1. Acute kidney injury with hyperkalemia. Patient's hydrochlorothiazide and lisinopril held. Nephrology services consulted 2. Episodes of nausea. Will order amylase lipase and abdominal ultrasound 3. History of syncopal episodes 4. History of essential hypertension 5. History of hypothyroidism 6. History of hyperlipidemia 7. History of BPH DVT prophylaxis heparin. GI prophylax Protonix Nephrology services consulted Patient did receive potassium lowering cocktail in ER repeat potassium 5.5 Continue gentle hydration Repeat labs ordered
[2024-05-07] MEDS: DICYCLOMINE 10 MG CAP PO SCH (19:57)
--- NOTE | 2024-05-08 10:46 | P.DS ---
Providers Date of admission: 05/04/24 17:51 Expected date of discharge: 05/08/24 Attending physician: Carmina Haque Consults: 05/04/24 17:49 Consult Physician Urgent Consulting Provider: Roger Matt Consult Reason/Comments: Acute renal failure, hyperkalemia Do you want consulting provider notified?: Yes Primary care physician: Carmina Haque [facility] Course: Discharge diagnosis 1. Acute kidney injury with hyperkalemia. Patient's hydrochlorothiazide and lisinopril held. Nephrology services consulted 2. Episodes of nausea. Will order amylase lipase and abdominal ultrasound 3. History of syncopal episodes 4. History of essential hypertension 5. History of hypothyroidism 6. History of hyperlipidemia 7. History of BPH Hospital course Prince Sanderson is a 78-year-old male patient who presented to the ER with concerns of low pulse ox per nursing records patient had a low pulse ox of 70% with visiting nurses upon arrival patient's pulse ox was 96%. Patient denies chest pain or shortness of breath. Patient denies nausea vomiting or diarrhea. Patient denied any urinary burning or frequency. Lab work was completed showing potassium of 6.2 and creatinine 3.11 bun 75. Patient is on lisinopril and hydrochlorothiazide these medications have been held. Patient also started on IV fluid and given potassium lowering cocktail repeat potassium 5.5. Patient has a past medical history of hypertension and syncope. Patient reports he has had some nausea. Denies vomiting or diarrhea. Influenza RSV and COVID-19 negative. At this time patient will be admitted. Nephrology services consulted will order amylase lipase and abdominal ultrasound. On 05/06/2024 patient was seen and examined on the medical floor he is alert and oriented x 3 in no apparent distress , he is complaining of abdominal discomfort and some nausea otherwise he denies any complaints there is no fever or chills no headache or dizziness, no chest pain no shortness of breath no cough, no burning with urination no frequency or urgency and no hematuria. Potassium is down to 5.0 BUN 46 creatinine 1.16 which is significant improvement his creatinine was 3.11 on presentation. On 05/07/2024 patient was seen and examined on the medical floor he is alert and oriented x 3 in no apparent distress he is complaining of generalized weakness and abdominal discomfort otherwise he denies any complaints there is no fever or chills no headache or dizziness no chest pain no shortness of breath no cough no nausea or vomiting no diarrhea and no urinary symptoms. At this time kidney function has improved significantly, physical therapy and Occupational Therapy were consulted to assess condition for discharge. On 05/08/2024 patient is alert and oriented x 3. Per case management family wants to take patient home. Creatinine 1.02 bun 34 potassium 4.6. Patient to be DC'd home but follow-up closely with PCP and consulting providers. CHAITANYA inhibitor and hydrochlorothiazide will be held upon discharge blood pressure stable. Patient denies chest pain or shortness of breath. Patient denies nausea vomiting or diarrhea. Patient denies any urinary burning or frequency Patient Condition at Discharge: Stable Plan - Discharge Summary Discharge Rx Participant: No New Discharge Prescriptions: New Dicyclomine [Bentyl] 10 mg PO TID 30 Days #90 cap Continue Tamsulosin HCl [Flomax] 0.4 mg PO DAILY Levothyroxine Sodium [Synthroid] 25 mcg PO DAILY Multivitamins, Thera [Multivitamin (formulary)] 1 tab PO DAILY Rosuvastatin Calcium 5 mg PO HS Cholecalciferol [Vitamin D3 (25 Mcg = 1000 Iu)] 50 mcg PO DAILY Pantoprazole Sodium [Protonix] 40 mg PO DAILY Ferrous Sulfate [Iron] 325 mg PO DAILY Megestrol Acetate 400 mg PO DAILY Docusate Sodium [Dok] 100 mg PO BID Aspirin 81 mg PO DAILY tab Metoprolol Succinate [Metoprolol Succinate ER] 12.5 mg PO DAILY Discontinued lisinopriL [Prinivil] 10 mg PO DAILY hydroCHLOROthiazide [Hydrodiuril] 12.5 mg PO DAILY Discharge Medication List Docusate Sodium [Dok] 100 mg PO BID 11/29/21 [History] Tamsulosin HCl [Flomax] 0.4 mg PO DAILY 11/29/21 [History] Levothyroxine Sodium [Synthroid] 25 mcg PO DAILY 03/23/22 [History] Aspirin 81 mg PO DAILY tab 03/25/22 [Rx] Cholecalciferol [Vitamin D3 (25 Mcg = 1000 Iu)] 50 mcg PO DAILY 05/18/23 [History] Ferrous Sulfate [Iron] 325 mg PO DAILY 05/18/23 [History] Multivitamins, Thera [Multivitamin (formulary)] 1 tab PO DAILY 12/06/23 [History] Pantoprazole Sodium [Protonix] 40 mg PO DAILY 05/18/23 [History] Rosuvastatin Calcium 5 mg PO HS 05/18/23 [History] Megestrol Acetate 400 mg PO DAILY 05/04/24 [History] Metoprolol Succinate [Metoprolol Succinate ER] 12.5 mg PO DAILY 05/04/24 [History] Dicyclomine [Bentyl] 10 mg PO TID 30 Days #90 cap 05/08/24 [Rx] Follow up Appointment(s)/Referral(s): Carmina Haque MD [Primary Care Provider] - 1-2 days Activity/Diet/Wound Care/Special Instructions: Patient requires a transport chair at time of discharge to assist with ADLs that cannot be completed with the use of a cane or walker due to unsteady gait and acute renal failure. Patient cannot self propel but has a caregiver who can propel the chair. Patient requires a bedside commode at time of discharge as patient is room confine due to unsteady gait/acute renal failure. Discharge Disposition: HOME WITH HOME HEALTH SERVICES
--- NOTE | 2024-05-08 11:36 | P.PN ---
Subjective patient is seen for follow-up for acute kidney injury. No significant complaints today. Renal function has improved with serum creatinine down to 1.0 S/p IVF Objective - Vital Signs Vital signs: Vital Signs Temp 98.1 F 05/08/24 08:00 Pulse 79 05/08/24 08:00 Resp 18 05/08/24 08:00 BP 116/82 05/08/24 08:00 Pulse Ox 98 05/08/24 08:00 FiO2 Intake & Output 05/07/24 05/08/24 05/08/24 18:59 06:59 18:59 Intake Total 120 118 Output Total 700 Balance 120 -700 118 Weight 69 kg Intake: Oral 120 118 Output: Urine 700 Other: Voiding Method External Catheter External Catheter External Catheter - Exam patient is awake, comfortable, no acute distress. Examination of the heart S1 and S2 Examination of the lungs bilateral breath sounds are heard Abdomen is soft nontender Examination of lower extremities shows no significant edema [employer] exam grossly intact - Labs CBC & Chem 7: 05/07/24 07:25 05/07/24 07:25 Assessment and Plan Assessment: 1. Acute kidney injury, ATN, nonoliguric associated with hypotension in the setting of use of CHAITANYA inhibitor's. Currently improving. Lisinopril and diuretics on hold and patient is maintained on IV fluids. Ultrasound shows no evidence of obstructive uropathy. 2. Non-gap metabolic acidosis secondary to acute kidney injury 3. Hyperkalemia associated with acute kidney injury and use of CHAITANYA inhibitor's, improved 4. Hypertension with blood pressure currently low Plan: continue off of IV fluids Stable for discharge from nephrology standpoint. May use low-dose CHAITANYA inhibitor's if blood pressure is elevated. Currently blood pressure is not high. Repeat labs as outpatient in 3-4 days. Continue to hold diuretics for now.
[2024-05-09 08:50] VITALS: TEMP 98.1
--- NOTE | 2024-05-09 11:32 | P.PN ---
Subjective Progress Note Date: 05/09/24 Prince Sanderson is a 78-year-old male patient who presented to the ER with concerns of low pulse ox per nursing records patient had a low pulse ox of 70% with visiting nurses upon arrival patient's pulse ox was 96%. Patient denies chest pain or shortness of breath patient denies any urinary burning or frequency patient denied any urinary burning or frequency. Lab work was completed showing potassium of 6.2 and creatinine 3.11 bun 75. Patient is on lisinopril and hydrochlorothiazide these medications have been held. Patient also started on IV fluid and given potassium lowering cocktail repeat potassium 5.5. Patient has a past medical history of hypertension and syncope. Patient reports he has had some nausea. Denies vomiting or diarrhea. Influenza RSV and COVID-19 negative. At this time patient will be admitted. Nephrology services consulted will order amylase lipase and abdominal ultrasound. On 05/06/2024 patient was seen and examined on the medical floor he is alert and oriented x 3 in no apparent distress , he is complaining of abdominal discomfort and some nausea otherwise he denies any complaints there is no fever or chills no headache or dizziness, no chest pain no shortness of breath no cough, no burning with urination no frequency or urgency and no hematuria. Potassium is down to 5.0 BUN 46 creatinine 1.16 which is significant improvement his creatinine was 3.11 on presentation. On 05/07/2024 patient was seen and examined on the medical floor he is alert and oriented x 3 in no apparent distress he is complaining of generalized weakness and abdominal discomfort otherwise he denies any complaints there is no fever or chills no headache or dizziness no chest pain no shortness of breath no cough no nausea or vomiting no diarrhea and no urinary symptoms. At this time kidney function has improved significantly, physical therapy and Occupational Therapy were consulted to assess condition for discharge. On patient is alert and oriented x 3. Patient is resting comfortably in bed. Discharge was placed yesterday apparently was held up due to family issue. Will place discharge order for today case management following. Patient denies chest pain or shortness of breath. Patient denies nausea vomiting or diarrhea. Patient denies any urinary burning or frequency Objective - Vital Signs Vital signs: Vital Signs Temp 98.1 F 05/09/24 07:05 Pulse 100 11/27/24 08:00 Resp 17 05/09/24 08:00 BP 118/79 05/09/24 07:05 Pulse Ox 98 05/09/24 07:05 FiO2 Intake & Output 05/08/24 05/09/24 05/09/24 18:59 06:59 18:59 Intake Total 118 560 Output Total 650 Balance 118 -90 Intake: Oral 118 560 Output: Urine 650 Other: Voiding Method External Catheter External Catheter External Catheter # Bowel Movements 0 - Exam Head normocephalic Neck supple Lungs clear to auscultation bilaterally no wheezing or crackles Heart regular rate and rhythm S1-S2, no rub or gallop Abdomen is soft nontender nondistended positive bowel sounds no hepatosplenomegaly Extremities no edema Neuro alert and orientated to 3 - Labs CBC & Chem 7: 05/07/24 07:25 05/07/24 07:25 Assessment and Plan Assessment: 1. Acute kidney injury with hyperkalemia. Patient's hydrochlorothiazide and lisinopril held. Nephrology services consulted 2. Episodes of nausea. Will order amylase lipase and abdominal ultrasound 3. History of syncopal episodes 4. History of essential hypertension 5. History of hypothyroidism 6. History of hyperlipidemia 7. History of BPH DVT prophylaxis heparin. GI prophylax Protonix Nephrology services consulted Patient did receive potassium lowering cocktail in ER repeat potassium 5.5 Continue gentle hydration Repeat labs ordered
[2024-05-09 13:17] VITALS: BP 117/74; PULSE 96; RESP 18
== END 2024-05-09 16:24 | disposition home health service (06) | DRG 683 ==
LOC: EC 13:56 → 3SCARD 17:51 → 4SSUR 05-08 21:29
PROVIDERS: ADMIT Internal Medicine; ATTEND Internal Medicine
DX: N17.0 Acute kidney failure with tubular necrosis (principal); E87.20 Acidosis, unspecified; E03.9 Hypothyroidism, unspecified; E78.5 Hyperlipidemia, unspecified; I10 Essential (primary) hypertension; E87.5 Hyperkalemia; N40.0 Benign prostatic hyperplasia without lower urinary tract symptoms; Z79.82 Long term (current) use of aspirin; Z79.890 Hormone replacement therapy; Z79.899 Other long term (current) drug therapy
CPT/HCPCS: 36415; 71046; 76770; 80048; 80053; 81001; 82150; 83605; 83690; 83735; 84132; 85025; 87636; 93005; 96361; 96365; 96366; 96375; 99291